=== PATIENT | male | born 1945 | race Caucasian/White ===

== ENCOUNTER 2017-02-15 14:16 | Inpatient (IN) | payer MEDICARE, OTHER ==
[~2017-02-15] VITALS: Ht 180.3 cm; Wt 98.7 kg
[~2017-02-15 14:16] MED LIST: ACTOS; LEVOXYL; LISI-646 PO; METF-370 PO; ONGLYZA
[2017-02-15] MEDS ORDERED: SODIUM CHLORIDE 0.9% 1,000 ML IV ONE (14:50)
[2017-02-15 15:25] LABS: Basophils # (auto) 0 uL; Basophils % (auto) 0.3 % (0.0-2.0); Eosinophils # (auto) 0 uL; Eosinophils % (auto) 0.1 % (0.0-7.0); Lymphocytes # (auto) 1.1 uL; Lymphocytes % (auto) 9.5 % (10.0-50.0); Mean Corpuscular Hemoglobin 29.6 pg (28.0-32.0); Mean Corpuscular Hgb Conc. 33.4 g/dL (32.0-36.0); Mean Corpuscular Volume 88.4 fL (80.0-100.0); Mean Platelet Volume 7.9 fL (6.9-10.8); Monocytes # (auto) 0.9 uL; Monocytes % (auto) 7.8 % (0.0-12.0); Neutrophils # (auto) 9.3 uL; Neutrophils % (auto) 82.3 % (37.0-80.0); Nucleated Red Blood Cells % 0.1 %; Platelet Count (auto) 225 10^3/uL (140-450); Red Cell Distribution Width 15.1 % (11.8-14.3); White Blood Cell 11.3 10^3/uL (4.4-10.8)
[2017-02-15 15:42] LABS: INR 2.19 (0.9-1.15)
[2017-02-15 15:49] LABS: Albumin 3.7 g/dL (3.4-5.0); Alkaline Phosphatase 94 U/L (45-117); Anion Gap 9 (5-15); Aspartate Aminotransferase 14 U/L (15-37); BUN/Creatinine Ratio 18.6; Bilirubin, Total 1.5 mg/dL (0.2-1.0); Blood Urea Nitrogen 16 mg/dL (7-18); Calcium 8.5 mg/dL (8.5-10.1); Carbon Dioxide 25 mmol/L (21-32); Chloride 102 mmol/L (98-107); GFR African American 113 mL/min; GFR Non-African American 93 mL/min; Glucose 196 mg/dL (74-106); Potassium 4.2 mmol/L (3.5-5.1); Sodium 136 mmol/L (136-145); Total Protein 7.9 g/dL (6.4-8.2)
[2017-02-15] MEDS ORDERED: PIPERACILLIN-TAZOB 3.375GM 50 ML IV ONE (16:00)
[2017-02-15] MEDS ORDERED: ACETAMINOPHEN 500 MG TAB PO PRN (16:45)
[2017-02-15] MEDS ORDERED: MORPHINE SULF INJ 2 MG/ML SYRINGE 1ML IV PRN (16:45)
[2017-02-15] MEDS ORDERED: PROMETHAZINE HCL 25 MG/ML 1ML IV PRN (16:45)
[2017-02-15] MEDS ORDERED: DEXTROSE (50%) 50ML SYRG IV PRN (16:45)
[2017-02-15] MEDS ORDERED: LACTULOSE 20Gm/30ML SOLN PO PRN (16:45)
[2017-02-15] MEDS ORDERED: LORazepam 0.5 MG TAB PO PRN (16:45)
[2017-02-15] MEDS ORDERED: NITROGLYCERIN 0.4 MG SL TAB SL PRN (16:45)
[2017-02-15] MEDS: SODIUM CHLORIDE 0.9% 1,000 ML IV SCH ×2 (16:46→22:12)
[2017-02-15] MEDS: ACCU-CHEK COMFORT CURVE STRIP VI SCH ×2 (16:55→22:11)
[2017-02-15] MEDS: InsuLIN REG 1unit/0.01ml Soln (100units/ml) SC SCH ×2 (16:55→22:00)
[2017-02-15] MEDS ORDERED: WARFARIN SODIUM 5 MG TAB PO ONE ×2 (17:45→18:00)
[2017-02-15] MEDS ORDERED: DILTIAZEM HCL 60 MG TAB PO ONE (18:15)
[2017-02-15 22:00] VITALS: BP_SYST 115; BP_SYST 120; BP_DIAS 63; BP_DIAS 65
[2017-02-15] MEDS: DILTIAZEM HCL 60 MG TAB PO SCH (22:10)
[2017-02-15] MEDS: CLINDAMYCIN 600MG IV 50 ML IV SCH (22:10)
[2017-02-15] MEDS: HYDROcodone-ACET 5/325MG TAB PO PRN (22:11)
[2017-02-15] MEDS: TEMAZEPAM 15 MG CAP PO PRN (22:11)
[2017-02-16 05:00] VITALS: BP 115/64
[2017-02-16] MEDS: CLINDAMYCIN 600MG IV 50 ML IV SCH ×3 (05:19→21:56)
[2017-02-16] MEDS: DILTIAZEM HCL 60 MG TAB PO SCH ×3 (05:20→21:55)
[2017-02-16] MEDS: ACCU-CHEK COMFORT CURVE STRIP VI SCH ×4 (05:21→22:00)
[2017-02-16] MEDS: LEVOTHYROXINE SODIUM 100 MCG TAB PO SCH (05:21)
[2017-02-16] MEDS: InsuLIN REG 1unit/0.01ml Soln (100units/ml) SC SCH ×4 (05:51→21:57)
[2017-02-16 06:54] LABS: Basophils # (auto) 0 uL; Basophils % (auto) 0.5 % (0.0-2.0); Eosinophils # (auto) 0.1 uL; Eosinophils % (auto) 1.1 % (0.0-7.0); Hematocrit 40.4 % (41.0-53.0); Hemoglobin 13.6 g/dL (13.5-17.5); Lymphocytes # (auto) 1.6 uL; Lymphocytes % (auto) 16.2 % (10.0-50.0); Mean Corpuscular Hemoglobin 29.5 pg (28.0-32.0); Mean Corpuscular Hgb Conc. 33.8 g/dL (32.0-36.0); Mean Corpuscular Volume 87.5 fL (80.0-100.0); Mean Platelet Volume 7.8 fL (6.9-10.8); Monocytes # (auto) 1.2 uL; Monocytes % (auto) 11.8 % (0.0-12.0); Neutrophils # (auto) 7.1 uL; Neutrophils % (auto) 70.4 % (37.0-80.0); Nucleated Red Blood Cells % 0.1 %; Platelet Count (auto) 184 10^3/uL (140-450); Red Cell Distribution Width 15.2 % (11.8-14.3); White Blood Cell 10.1 10^3/uL (4.4-10.8)
[2017-02-16 07:31] LABS: INR 1.72 (0.9-1.15); Prothrombin Time 18.8 sec (9.37-12.3)
[2017-02-16] MEDS: cefTRIAXone 1GM/50ML D5W 50 ML IV SCH (09:07)
[2017-02-16 09:28] VITALS: BP 102/48
[2017-02-16 09:29] VITALS: BP 102/48
[2017-02-16] MEDS: LISINOPRIL 20 MG TAB PO SCH (10:00)
[2017-02-16 12:30] VITALS: BP 130/67
[2017-02-16] MEDS: SODIUM CHLORIDE 0.9% 1,000 ML IV SCH (12:36)
[2017-02-16 16:09] VITALS: BP 143/59
[2017-02-16] MEDS: HYDROcodone-ACET 5/325MG TAB PO PRN ×2 (16:15→22:45)
[2017-02-16] MEDS: ATORVASTATIN 20 MG TAB PO SCH (21:52)
[2017-02-16 22:00] VITALS: BP 117/63
[2017-02-17] MEDS: SODIUM CHLORIDE 0.9% 1,000 ML IV SCH (03:37)
[2017-02-17 05:52] LABS: Basophils # (auto) 0.1 uL; Basophils % (auto) 0.7 % (0.0-2.0); Eosinophils # (auto) 0.1 uL; Eosinophils % (auto) 0.9 % (0.0-7.0); Hematocrit 40.9 % (41.0-53.0); Hemoglobin 13.6 g/dL (13.5-17.5); Lymphocytes # (auto) 1.8 uL; Lymphocytes % (auto) 14.5 % (10.0-50.0); Mean Corpuscular Hemoglobin 29.1 pg (28.0-32.0); Mean Corpuscular Hgb Conc. 33.2 g/dL (32.0-36.0); Mean Corpuscular Volume 87.5 fL (80.0-100.0); Mean Platelet Volume 7.9 fL (6.9-10.8); Monocytes # (auto) 1.5 uL; Monocytes % (auto) 12.5 % (0.0-12.0); Neutrophils # (auto) 8.8 uL; Neutrophils % (auto) 71.4 % (37.0-80.0); Platelet Count (auto) 185 10^3/uL (140-450); Red Cell Distribution Width 14.8 % (11.8-14.3); White Blood Cell 12.3 10^3/uL (4.4-10.8)
[2017-02-17 05:57] VITALS: BP 130/65
[2017-02-17 06:05] LABS: BUN/Creatinine Ratio 16.9; Calcium 8.2 mg/dL (8.5-10.1); Potassium 4.6 mmol/L (3.5-5.1)
[2017-02-17] MEDS: CLINDAMYCIN 600MG IV 50 ML IV SCH ×3 (06:25→22:04)
[2017-02-17] MEDS: LEVOTHYROXINE SODIUM 100 MCG TAB PO SCH (06:26)
[2017-02-17] MEDS: DILTIAZEM HCL 60 MG TAB PO SCH ×3 (06:31→22:07)
[2017-02-17] MEDS: HYDROcodone-ACET 5/325MG TAB PO PRN ×3 (06:35→20:47)
[2017-02-17] MEDS: InsuLIN REG 1unit/0.01ml Soln (100units/ml) SC SCH ×4 (06:41→22:20)
[2017-02-17 08:29] VITALS: BP 126/68
[2017-02-17] MEDS: cefTRIAXone 1GM/50ML D5W 50 ML IV SCH (09:43)
[2017-02-17] MEDS: LISINOPRIL 20 MG TAB PO SCH (09:43)
[2017-02-17] MEDS: ACCU-CHEK COMFORT CURVE STRIP VI SCH ×3 (11:44→22:21)
[2017-02-17 12:30] VITALS: BP 101/59
[2017-02-17 17:01] VITALS: BP 109/63
[2017-02-17 18:00] VITALS: BP 117/63
[2017-02-17] MEDS: ASCORBIC ACID 500 MG TAB PO SCH (18:40)
[2017-02-17] MEDS: MULTIPLE VITAMINS W/ MINERALS TAB PO SCH (18:40)
[2017-02-17] MEDS: ATORVASTATIN 20 MG TAB PO SCH (22:07)
[2017-02-18 05:06] VITALS: BP 127/76
[2017-02-18] MEDS: CLINDAMYCIN 600MG IV 50 ML IV SCH ×3 (06:06→22:11)
[2017-02-18] MEDS: DILTIAZEM HCL 60 MG TAB PO SCH ×3 (06:07→22:00)
[2017-02-18] MEDS: LEVOTHYROXINE SODIUM 100 MCG TAB PO SCH (06:09)
[2017-02-18] MEDS: InsuLIN REG 1unit/0.01ml Soln (100units/ml) SC SCH ×4 (06:20→22:10)
[2017-02-18] MEDS: ACCU-CHEK COMFORT CURVE STRIP VI SCH ×4 (06:21→22:10)
[2017-02-18 06:23] LABS: Basophils # (auto) 0 uL; Basophils % (auto) 0.2 % (0.0-2.0); Eosinophils # (auto) 0.1 uL; Eosinophils % (auto) 1.2 % (0.0-7.0); Hematocrit 38.7 % (41.0-53.0); Hemoglobin 13.2 g/dL (13.5-17.5); Lymphocytes # (auto) 1.7 uL; Lymphocytes % (auto) 14.9 % (10.0-50.0); Mean Corpuscular Hemoglobin 29.7 pg (28.0-32.0); Mean Corpuscular Hgb Conc. 34.1 g/dL (32.0-36.0); Mean Corpuscular Volume 87.2 fL (80.0-100.0); Mean Platelet Volume 7.7 fL (6.9-10.8); Monocytes # (auto) 1.1 uL; Monocytes % (auto) 9.5 % (0.0-12.0); Neutrophils # (auto) 8.4 uL; Neutrophils % (auto) 74.2 % (37.0-80.0); Nucleated Red Blood Cells % 0.1 %; Platelet Count (auto) 177 10^3/uL (140-450); Red Cell Distribution Width 14.5 % (11.8-14.3); White Blood Cell 11.3 10^3/uL (4.4-10.8)
[2017-02-18] MEDS: HYDROcodone-ACET 5/325MG TAB PO PRN ×3 (06:24→20:20)
[2017-02-18 07:04] LABS: BUN/Creatinine Ratio 18.8; Calcium 8.1 mg/dL (8.5-10.1); Potassium 4.1 mmol/L (3.5-5.1)
[2017-02-18 09:00] VITALS: BP 120/70
[2017-02-18] MEDS: MULTIPLE VITAMINS W/ MINERALS TAB PO SCH (10:41)
[2017-02-18] MEDS: ASCORBIC ACID 500 MG TAB PO SCH (10:41)
[2017-02-18] MEDS: LISINOPRIL 20 MG TAB PO SCH (10:42)
[2017-02-18] MEDS: cefTRIAXone 1GM/50ML D5W 50 ML IV SCH (10:44)
[2017-02-18 13:00] VITALS: BP 123/71
[2017-02-18 16:46] VITALS: BP 106/60
[2017-02-18] MEDS: ATORVASTATIN 20 MG TAB PO SCH (22:11)
[2017-02-18 22:18] VITALS: BP 110/57
[2017-02-19] MEDS: HYDROcodone-ACET 5/325MG TAB PO PRN ×3 (04:59→20:25)
[2017-02-19 05:49] VITALS: BP 131/72
[2017-02-19] MEDS: CLINDAMYCIN 600MG IV 50 ML IV SCH ×3 (06:17→21:43)
[2017-02-19] MEDS: DILTIAZEM HCL 60 MG TAB PO SCH ×3 (06:17→21:44)
[2017-02-19] MEDS: LEVOTHYROXINE SODIUM 100 MCG TAB PO SCH (06:18)
[2017-02-19] MEDS: ACCU-CHEK COMFORT CURVE STRIP VI SCH ×4 (06:18→21:33)
[2017-02-19] MEDS: InsuLIN REG 1unit/0.01ml Soln (100units/ml) SC SCH ×4 (06:19→21:44)
[2017-02-19 06:24] LABS: Basophils # (auto) 0.1 uL; Basophils % (auto) 0.7 % (0.0-2.0); Eosinophils # (auto) 0.2 uL; Eosinophils % (auto) 2.1 % (0.0-7.0); Hematocrit 39.6 % (41.0-53.0); Hemoglobin 13.3 g/dL (13.5-17.5); Lymphocytes # (auto) 1.7 uL; Lymphocytes % (auto) 16.4 % (10.0-50.0); Mean Corpuscular Hemoglobin 29.6 pg (28.0-32.0); Mean Corpuscular Hgb Conc. 33.6 g/dL (32.0-36.0); Mean Corpuscular Volume 88.2 fL (80.0-100.0); Mean Platelet Volume 7.8 fL (6.9-10.8); Monocytes # (auto) 0.9 uL; Monocytes % (auto) 9.1 % (0.0-12.0); Neutrophils # (auto) 7.4 uL; Neutrophils % (auto) 71.7 % (37.0-80.0); Nucleated Red Blood Cells % 0.1 %; Platelet Count (auto) 197 10^3/uL (140-450); Red Cell Distribution Width 14.6 % (11.8-14.3); White Blood Cell 10.3 10^3/uL (4.4-10.8)
[2017-02-19 06:33] LABS: Potassium 4.5 mmol/L (3.5-5.1)
[2017-02-19 06:41] LABS: Albumin 2.8 g/dL (3.4-5.0); BUN/Creatinine Ratio 18.8; Calcium 8.4 mg/dL (8.5-10.1)
[2017-02-19 06:44] LABS: Bilirubin, Total 1.4 mg/dL (0.2-1.0); Total Protein 6.8 g/dL (6.4-8.2)
[2017-02-19 08:00] VITALS: BP 122/74
[2017-02-19 09:00] VITALS: BP 122/74
[2017-02-19] MEDS: cefTRIAXone 1GM/50ML D5W 50 ML IV SCH (09:08)
[2017-02-19] MEDS: MULTIPLE VITAMINS W/ MINERALS TAB PO SCH (09:09)
[2017-02-19] MEDS: LISINOPRIL 20 MG TAB PO SCH (09:09)
[2017-02-19] MEDS: ASCORBIC ACID 500 MG TAB PO SCH (09:09)
[2017-02-19 13:00] VITALS: BP 121/58
[2017-02-19] MEDS: MORPHINE SULF INJ 2 MG/ML SYRINGE 1ML IV PRN (15:30)
[2017-02-19 17:09] VITALS: BP_SYST 132; BP_SYST 165; BP_DIAS 75; BP_DIAS 98
[2017-02-19] MEDS: ATORVASTATIN 20 MG TAB PO SCH (21:44)
[2017-02-19 22:00] VITALS: BP 121/71
[2017-02-20] MEDS: HYDROcodone-ACET 5/325MG TAB PO PRN ×3 (03:31→17:37)
[2017-02-20 05:00] VITALS: BP 135/64
[2017-02-20] MEDS: CLINDAMYCIN 600MG IV 50 ML IV SCH ×2 (05:59→13:32)
[2017-02-20] MEDS: LEVOTHYROXINE SODIUM 100 MCG TAB PO SCH (06:00)
[2017-02-20] MEDS: DILTIAZEM HCL 60 MG TAB PO SCH ×3 (06:00→21:51)
[2017-02-20] MEDS: ACCU-CHEK COMFORT CURVE STRIP VI SCH ×4 (06:00→22:04)
[2017-02-20] MEDS: InsuLIN REG 1unit/0.01ml Soln (100units/ml) SC SCH ×4 (06:00→22:04)
[2017-02-20 06:54] LABS: Basophils # (auto) 0.1 uL; Basophils % (auto) 0.5 % (0.0-2.0); Eosinophils # (auto) 0.2 uL; Eosinophils % (auto) 2.5 % (0.0-7.0); Hematocrit 38.2 % (41.0-53.0); Hemoglobin 12.8 g/dL (13.5-17.5); Lymphocytes # (auto) 1.8 uL; Lymphocytes % (auto) 19.3 % (10.0-50.0); Mean Corpuscular Hemoglobin 29.5 pg (28.0-32.0); Mean Corpuscular Hgb Conc. 33.5 g/dL (32.0-36.0); Mean Corpuscular Volume 87.9 fL (80.0-100.0); Mean Platelet Volume 8.2 fL (6.9-10.8); Monocytes # (auto) 0.9 uL; Monocytes % (auto) 9.2 % (0.0-12.0); Neutrophils # (auto) 6.5 uL; Neutrophils % (auto) 68.5 % (37.0-80.0); Nucleated Red Blood Cells % 0.2 %; Platelet Count (auto) 222 10^3/uL (140-450); Red Cell Distribution Width 14.8 % (11.8-14.3); White Blood Cell 9.5 10^3/uL (4.4-10.8)
[2017-02-20 07:14] LABS: Albumin 2.7 g/dL (3.4-5.0); Calcium 8.6 mg/dL (8.5-10.1); Potassium 4.5 mmol/L (3.5-5.1)
[2017-02-20 07:15] LABS: BUN/Creatinine Ratio 18.6
[2017-02-20 07:19] LABS: Bilirubin, Total 1.1 mg/dL (0.2-1.0); Total Protein 6.8 g/dL (6.4-8.2)
[2017-02-20 08:00] VITALS: BP 130/79
[2017-02-20] MEDS: cefTRIAXone 1GM/50ML D5W 50 ML IV SCH (09:55)
[2017-02-20] MEDS: MULTIPLE VITAMINS W/ MINERALS TAB PO SCH (09:56)
[2017-02-20] MEDS: LISINOPRIL 20 MG TAB PO SCH (09:56)
[2017-02-20] MEDS: ASCORBIC ACID 500 MG TAB PO SCH (09:56)
[2017-02-20 11:51] VITALS: BP 128/65
[2017-02-20 17:13] VITALS: BP 130/60
[2017-02-20 20:00] VITALS: BP 135/74
[2017-02-20] MEDS: ATORVASTATIN 20 MG TAB PO SCH (21:51)
[2017-02-20] MEDS: PIPERACILLIN-TAZO 4.5GM 50 ML IV SCH (21:52)
[2017-02-20 22:00] VITALS: BP 135/74
[2017-02-21] VITALS (7 sets, daily range): BP systolic 122–147; BP diastolic 64–77
[2017-02-21] MEDS: HYDROcodone-ACET 5/325MG TAB PO PRN ×4 (00:34→20:37)
[2017-02-21] MEDS: DILTIAZEM HCL 60 MG TAB PO SCH ×3 (06:26→21:27)
[2017-02-21] MEDS: LEVOTHYROXINE SODIUM 100 MCG TAB PO SCH (06:27)
[2017-02-21] MEDS: PIPERACILLIN-TAZO 4.5GM 50 ML IV SCH ×3 (06:27→21:26)
[2017-02-21] MEDS: ACCU-CHEK COMFORT CURVE STRIP VI SCH ×4 (06:40→21:31)
[2017-02-21] MEDS: InsuLIN REG 1unit/0.01ml Soln (100units/ml) SC SCH ×4 (06:50→21:27)
[2017-02-21 07:11] LABS: Urine Bilirubin Negative (Negative); Urine Blood Negative /uL (Negative); Urine Color Yellow (Yellow); Urine Glucose Normal (Normal); Urine Ketone Negative (Negative); Urine Nitrite Negative (Negative); Urine RBC <1 /hpf (0 - 3); Urine Urobilinogen Normal (Negative)
[2017-02-21] MEDS: LISINOPRIL 20 MG TAB PO SCH (09:25)
[2017-02-21] MEDS: MULTIPLE VITAMINS W/ MINERALS TAB PO SCH (09:25)
[2017-02-21] MEDS: ASCORBIC ACID 500 MG TAB PO SCH (09:25)
[2017-02-21] MEDS: MORPHINE SULF INJ 2 MG/ML SYRINGE 1ML IV PRN (15:34)
[2017-02-21] MEDS: ATORVASTATIN 20 MG TAB PO SCH (21:26)
[2017-02-22 05:00] VITALS: BP 136/81
[2017-02-22] MEDS: PIPERACILLIN-TAZO 4.5GM 50 ML IV SCH ×3 (06:35→22:08)
[2017-02-22] MEDS: LEVOTHYROXINE SODIUM 100 MCG TAB PO SCH (06:36)
[2017-02-22] MEDS: DILTIAZEM HCL 60 MG TAB PO SCH ×3 (06:38→22:08)
[2017-02-22] MEDS: HYDROcodone-ACET 5/325MG TAB PO PRN ×2 (06:39→17:25)
[2017-02-22] MEDS: InsuLIN REG 1unit/0.01ml Soln (100units/ml) SC SCH ×4 (06:55→22:09)
[2017-02-22] MEDS: ACCU-CHEK COMFORT CURVE STRIP VI SCH ×4 (06:56→22:09)
[2017-02-22 07:49] LABS: Albumin 2.9 g/dL (3.4-5.0); BUN/Creatinine Ratio 13.3; Calcium 8.6 mg/dL (8.5-10.1); Potassium 4.2 mmol/L (3.5-5.1)
[2017-02-22 07:52] LABS: Bilirubin, Total 1.1 mg/dL (0.2-1.0); Total Protein 7.2 g/dL (6.4-8.2)
[2017-02-22 08:28] VITALS: BP 139/76
[2017-02-22] MEDS: MULTIPLE VITAMINS W/ MINERALS TAB PO SCH (09:41)
[2017-02-22] MEDS: ASCORBIC ACID 500 MG TAB PO SCH (09:41)
[2017-02-22] MEDS: LISINOPRIL 20 MG TAB PO SCH (09:42)
[2017-02-22 11:59] VITALS: BP 132/83
[2017-02-22] MEDS ORDERED: IOHEXOL 350 MG/ML 100ML IJ ONE (13:35)
[2017-02-22] MEDS ORDERED: LIDOCAINE 2%HCL (LOCAL ANESTH.) INJ 20ML MDV ONE (13:35)
[2017-02-22] MEDS ORDERED: fentaNYL CITRATE 100 MCG/2 ML VL ONE (14:34)
[2017-02-22] MEDS ORDERED: ANGIOMAX 250 MG VIAL IV ONE ×2 (14:34→15:30)
[2017-02-22] MEDS ORDERED: MIDAZOLAM HCL 1MG/1ML-2 ML VIAL ONE (14:34)
[2017-02-22] MEDS ORDERED: SODIUM CHL 0.9% 50 ML ONE ×2 (14:35→15:31)
[2017-02-22] MEDS ORDERED: CLOPIDOGREL 300 MG TAB ONE (15:54)
[2017-02-22] MEDS: MORPHINE SULF INJ 2 MG/ML SYRINGE 1ML IV PRN ×2 (16:13→22:19)
[2017-02-22] MEDS ORDERED: CLOPIDOGREL 300 MG TAB PO ONE (16:15)
[2017-02-22 17:00] VITALS: BP 139/76
[2017-02-22 22:00] VITALS: BP 122/69
[2017-02-22] MEDS: ATORVASTATIN 20 MG TAB PO SCH (22:09)
[2017-02-23] VITALS (7 sets, daily range): BP systolic 120–135; BP diastolic 64–69
[2017-02-23] MEDS: HYDROcodone-ACET 5/325MG TAB PO PRN ×3 (02:33→22:46)
[2017-02-23] MEDS: PIPERACILLIN-TAZO 4.5GM 50 ML IV SCH ×3 (06:14→22:44)
[2017-02-23] MEDS: ACCU-CHEK COMFORT CURVE STRIP VI SCH ×4 (06:15→22:00)
[2017-02-23] MEDS: DILTIAZEM HCL 60 MG TAB PO SCH ×3 (06:15→22:43)
[2017-02-23] MEDS: LEVOTHYROXINE SODIUM 100 MCG TAB PO SCH (06:15)
[2017-02-23] MEDS: InsuLIN REG 1unit/0.01ml Soln (100units/ml) SC SCH ×4 (06:15→22:44)
[2017-02-23] MEDS ORDERED: CLOPIDOGREL BISULFATE 75 MG TAB PO SCH (10:00)
[2017-02-23] MEDS: ASCORBIC ACID 500 MG TAB PO SCH (10:47)
[2017-02-23] MEDS: LISINOPRIL 20 MG TAB PO SCH (10:48)
[2017-02-23] MEDS: MULTIPLE VITAMINS W/ MINERALS TAB PO SCH (10:48)
[2017-02-23] MEDS: MORPHINE SULF INJ 2 MG/ML SYRINGE 1ML IV PRN ×2 (13:32→20:41)
[2017-02-23] MEDS: ATORVASTATIN 20 MG TAB PO SCH (22:36)
[2017-02-24 05:23] VITALS: BP 130/81
[2017-02-24] MEDS: PIPERACILLIN-TAZO 4.5GM 50 ML IV SCH ×3 (06:08→17:16)
[2017-02-24] MEDS: DILTIAZEM HCL 60 MG TAB PO SCH ×3 (06:10→22:29)
[2017-02-24] MEDS: InsuLIN REG 1unit/0.01ml Soln (100units/ml) SC SCH ×4 (06:32→23:03)
[2017-02-24] MEDS: ACCU-CHEK COMFORT CURVE STRIP VI SCH ×4 (06:32→22:29)
[2017-02-24] MEDS: LEVOTHYROXINE SODIUM 100 MCG TAB PO SCH (06:33)
[2017-02-24 07:01] LABS: INR 1.05 (0.9-1.15); Partial Thromboplastin Time 29.6 sec (22.64-33.71); Prothrombin Time 11.5 sec (9.37-12.3)
[2017-02-24 08:00] VITALS: BP 139/79
[2017-02-24 09:00] VITALS: BP 139/79
[2017-02-24] MEDS: LISINOPRIL 20 MG TAB PO SCH (09:07)
[2017-02-24] MEDS: MULTIPLE VITAMINS W/ MINERALS TAB PO SCH (09:07)
[2017-02-24] MEDS: ASCORBIC ACID 500 MG TAB PO SCH (09:07)
[2017-02-24] MEDS ORDERED: ceFAZolin 1GM/50ML 50 ML IV ONE (10:21)
[2017-02-24] MEDS ORDERED: ceFAZolin 1GM VL ONE (11:41)
[2017-02-24] MEDS ORDERED: BUPIVACAINE 0.75% INJ 10ML MPV SDV IJ ONE (11:41)
[2017-02-24] MEDS ORDERED: MIDAZOLAM HCL 1MG/1ML-2 ML VIAL ONE (11:59)
[2017-02-24] MEDS ORDERED: fentaNYL CITRATE 100 MCG/2 ML VL ONE (11:59)
[2017-02-24] MEDS ORDERED: PROPOFOL 10 MG/ML 20 ML IV ONE (12:02)
[2017-02-24] MEDS ORDERED: hydrALAZINE HCL 20 MG/ML VL IV PRN (12:45)
[2017-02-24] MEDS ORDERED: ePHEDrine SULFATE 50 MG/ML AMP IV PRN (12:45)
[2017-02-24] MEDS ORDERED: ONDANSETRON HCL 4 MG/2 ML VIAL IV ONE (12:45)
[2017-02-24] MEDS ORDERED: fentaNYL CITRATE 100 MCG/2 ML VL IV ONE (13:00)
[2017-02-24 17:00] VITALS: BP 131/69
[2017-02-24 22:10] VITALS: BP 137/71
[2017-02-24] MEDS: ATORVASTATIN 20 MG TAB PO SCH (22:29)
[2017-02-24] MEDS: HYDROcodone-ACET 5/325MG TAB PO PRN (23:04)
[2017-02-25] MEDS: PIPERACILLIN-TAZO 4.5GM 50 ML IV SCH (02:00)
[2017-02-25 05:10] VITALS: BP 141/76
[2017-02-25] MEDS: DILTIAZEM HCL 60 MG TAB PO SCH ×3 (06:08→21:23)
[2017-02-25] MEDS: HYDROcodone-ACET 5/325MG TAB PO PRN ×3 (06:20→21:24)
[2017-02-25] MEDS: LEVOTHYROXINE SODIUM 100 MCG TAB PO SCH (06:26)
[2017-02-25] MEDS: ACCU-CHEK COMFORT CURVE STRIP VI SCH ×4 (06:27→21:24)
[2017-02-25] MEDS: InsuLIN REG 1unit/0.01ml Soln (100units/ml) SC SCH ×4 (06:27→21:23)
[2017-02-25 08:00] VITALS: BP 130/74
[2017-02-25 09:00] VITALS: BP_SYST 129; BP_SYST 130; BP_DIAS 58; BP_DIAS 74
[2017-02-25] MEDS: ASCORBIC ACID 500 MG TAB PO SCH (10:05)
[2017-02-25] MEDS: LISINOPRIL 20 MG TAB PO SCH (10:05)
[2017-02-25] MEDS: MULTIPLE VITAMINS W/ MINERALS TAB PO SCH (10:05)
[2017-02-25] MEDS: diphenhdrAMINE HCL 25 MG CAP PO PRN (11:48)
[2017-02-25 14:09] VITALS: BP 132/75
[2017-02-25 17:11] VITALS: BP 128/79
[2017-02-25] MEDS: ATORVASTATIN 20 MG TAB PO SCH (21:23)
[2017-02-25 22:00] VITALS: BP 123/65
[2017-02-26 04:00] VITALS: BP 127/76
[2017-02-26] MEDS: DILTIAZEM HCL 60 MG TAB PO SCH ×3 (05:52→22:41)
[2017-02-26] MEDS: LEVOTHYROXINE SODIUM 100 MCG TAB PO SCH (05:53)
[2017-02-26] MEDS: ACCU-CHEK COMFORT CURVE STRIP VI SCH ×4 (05:53→22:42)
[2017-02-26] MEDS: InsuLIN REG 1unit/0.01ml Soln (100units/ml) SC SCH ×4 (05:56→22:45)
[2017-02-26 07:52] VITALS: BP 117/68
[2017-02-26] MEDS: ASCORBIC ACID 500 MG TAB PO SCH (09:35)
[2017-02-26] MEDS: diphenhdrAMINE HCL 25 MG CAP PO PRN ×3 (09:35→23:19)
[2017-02-26] MEDS: MULTIPLE VITAMINS W/ MINERALS TAB PO SCH (09:35)
[2017-02-26] MEDS: LISINOPRIL 20 MG TAB PO SCH (10:00)
[2017-02-26 12:14] VITALS: BP 128/67
[2017-02-26] MEDS: HYDROcodone-ACET 5/325MG TAB PO PRN (14:35)
[2017-02-26 17:14] VITALS: BP 128/75
[2017-02-26 22:00] VITALS: BP 121/62
[2017-02-26] MEDS: ATORVASTATIN 20 MG TAB PO SCH (22:41)
[2017-02-26] MEDS: LEVOFLOXACIN 500 MG TAB PO SCH (22:41)
[2017-02-27 05:00] VITALS: BP 134/72
[2017-02-27] MEDS: diphenhdrAMINE HCL 25 MG CAP PO PRN ×2 (06:00→13:01)
[2017-02-27] MEDS: DILTIAZEM HCL 60 MG TAB PO SCH ×3 (06:37→21:49)
[2017-02-27] MEDS: LEVOTHYROXINE SODIUM 100 MCG TAB PO SCH (06:37)
[2017-02-27] MEDS: ACCU-CHEK COMFORT CURVE STRIP VI SCH ×4 (06:37→21:54)
[2017-02-27] MEDS: InsuLIN REG 1unit/0.01ml Soln (100units/ml) SC SCH ×4 (06:38→22:01)
[2017-02-27 08:00] VITALS: BP 136/90
[2017-02-27 09:00] VITALS: BP 136/90
[2017-02-27] MEDS: MULTIPLE VITAMINS W/ MINERALS TAB PO SCH (10:37)
[2017-02-27] MEDS: LEVOFLOXACIN 500 MG TAB PO SCH (10:37)
[2017-02-27] MEDS: ASCORBIC ACID 500 MG TAB PO SCH (10:37)
[2017-02-27] MEDS: LISINOPRIL 20 MG TAB PO SCH (10:38)
[2017-02-27 13:00] VITALS: BP_SYST 130; BP_SYST 132; BP_DIAS 76; BP_DIAS 82
[2017-02-27] MEDS: HYDROcodone-ACET 5/325MG TAB PO PRN (15:46)
[2017-02-27 17:00] VITALS: BP 119/70
[2017-02-27] MEDS ORDERED: predniSONE 5 MG TAB PO ONE (20:30)
[2017-02-27] MEDS ORDERED: diphenhdrAMINE HCL 25 MG CAP PO SCH (20:30)
[2017-02-27] MEDS: ATORVASTATIN 20 MG TAB PO SCH (21:48)
[2017-02-27] MEDS: diphenhdrAMINE HCL 25 MG CAP PO SCH (21:48)
[2017-02-27] MEDS: TEMAZEPAM 15 MG CAP PO PRN (22:00)
[2017-02-27 23:44] VITALS: BP 154/75
[2017-02-28] VITALS (7 sets, daily range): BP systolic 131–161; BP diastolic 75–82
[2017-02-28] MEDS: diphenhdrAMINE HCL 25 MG CAP PO SCH ×4 (05:58→18:57)
[2017-02-28] MEDS: DILTIAZEM HCL 60 MG TAB PO SCH ×3 (05:59→22:07)
[2017-02-28] MEDS: LEVOTHYROXINE SODIUM 100 MCG TAB PO SCH (06:47)
[2017-02-28] MEDS: ACCU-CHEK COMFORT CURVE STRIP VI SCH ×4 (06:54→22:22)
[2017-02-28] MEDS: InsuLIN REG 1unit/0.01ml Soln (100units/ml) SC SCH ×4 (06:54→22:22)
[2017-02-28] MEDS: MULTIPLE VITAMINS W/ MINERALS TAB PO SCH (10:01)
[2017-02-28] MEDS: LISINOPRIL 20 MG TAB PO SCH (10:01)
[2017-02-28] MEDS: predniSONE 5 MG TAB PO SCH (10:01)
[2017-02-28] MEDS: HYDROcodone-ACET 5/325MG TAB PO PRN (10:01)
[2017-02-28] MEDS: ASCORBIC ACID 500 MG TAB PO SCH (10:02)
[2017-02-28] MEDS: LEVOFLOXACIN 500 MG TAB PO SCH (10:02)
[2017-02-28] MEDS: ATORVASTATIN 20 MG TAB PO SCH (22:07)
[2017-02-28] MEDS: TEMAZEPAM 15 MG CAP PO PRN (22:28)
[2017-03-01 04:42] VITALS: BP 143/93
[2017-03-01] MEDS: diphenhdrAMINE HCL 25 MG CAP PO SCH ×4 (06:36→19:33)
[2017-03-01] MEDS: DILTIAZEM HCL 60 MG TAB PO SCH ×2 (06:36→16:57)
[2017-03-01] MEDS: InsuLIN REG 1unit/0.01ml Soln (100units/ml) SC SCH ×3 (06:37→17:09)
[2017-03-01] MEDS: ACCU-CHEK COMFORT CURVE STRIP VI SCH ×3 (06:37→17:03)
[2017-03-01] MEDS: LEVOTHYROXINE SODIUM 100 MCG TAB PO SCH (07:31)
[2017-03-01 08:00] VITALS: BP 129/82
[2017-03-01 08:00] LABS: Basophils # (auto) 0 uL; Basophils % (auto) 0.3 % (0.0-2.0); Eosinophils # (auto) 0.1 uL; Eosinophils % (auto) 0.4 % (0.0-7.0); Hematocrit 42.8 % (41.0-53.0); Hemoglobin 14.2 g/dL (13.5-17.5); Lymphocytes # (auto) 1.8 uL; Lymphocytes % (auto) 14.9 % (10.0-50.0); Mean Corpuscular Hemoglobin 28.7 pg (28.0-32.0); Mean Corpuscular Hgb Conc. 33.2 g/dL (32.0-36.0); Mean Corpuscular Volume 86.3 fL (80.0-100.0); Mean Platelet Volume 7.7 fL (6.9-10.8); Monocytes # (auto) 0.8 uL; Monocytes % (auto) 6.9 % (0.0-12.0); Neutrophils # (auto) 9.4 uL; Neutrophils % (auto) 77.5 % (37.0-80.0); Platelet Count (auto) 284 10^3/uL (140-450); Red Cell Distribution Width 14.2 % (11.8-14.3); White Blood Cell 12.1 10^3/uL (4.4-10.8)
[2017-03-01 09:00] VITALS: BP 129/82
[2017-03-01] MEDS: LEVOFLOXACIN 500 MG TAB PO SCH (10:44)
[2017-03-01] MEDS: ASCORBIC ACID 500 MG TAB PO SCH (10:44)
[2017-03-01] MEDS: MULTIPLE VITAMINS W/ MINERALS TAB PO SCH (10:44)
[2017-03-01] MEDS: LISINOPRIL 20 MG TAB PO SCH (10:45)
[2017-03-01] MEDS: predniSONE 5 MG TAB PO SCH (10:45)
[2017-03-01 12:41] VITALS: BP 120/69
[2017-03-01 16:05] VITALS: BP 120/69
[2017-03-01 17:41] VITALS: BP 127/83
== END 2017-03-01 20:15 | disposition home health service (06) | DRG 271 ==
LOC: ER 14:16 → TELE 14:17 → TELE-CENTR 21:04
PROVIDERS: ADMIT Internal Medicine; ATTEND Internal Medicine Pulmonary Disease
PROC: 0Y6T0Z0 Detachment at Right 3rd Toe, Complete, Open Approach (ICD-10-PCS; 2017-02-24)
PROC: 047M3Z1 Dilation of Right Popliteal Artery using Drug-Coated Balloon, Percutaneous Approach (ICD-10-PCS; principal; 2017-02-25)
PROC: 04CM3ZZ Extirpation of Matter from Right Popliteal Artery, Percutaneous Approach (ICD-10-PCS; 2017-02-25)
PROC: 047T3Z1 Dilation of Right Peroneal Artery using Drug-Coated Balloon, Percutaneous Approach (ICD-10-PCS; 2017-02-25)
PROC: 04CT3ZZ Extirpation of Matter from Right Peroneal Artery, Percutaneous Approach (ICD-10-PCS; 2017-02-25)
DX: E11.52 Type 2 diabetes mellitus with diabetic peripheral angiopathy with gangrene (principal); E11.621 Type 2 diabetes mellitus with foot ulcer; I48.91 Unspecified atrial fibrillation; L03.115 Cellulitis of right lower limb; E66.01 Morbid (severe) obesity due to excess calories; M86.8X8 Other osteomyelitis, other site; L03.811 Cellulitis of head [any part, except face]; E11.69 Type 2 diabetes mellitus with other specified complication; E11.319 Type 2 diabetes mellitus with unspecified diabetic retinopathy without macular edema; E78.5 Hyperlipidemia, unspecified; R63.4 Abnormal weight loss; R21 Rash and other nonspecific skin eruption; I10 Essential (primary) hypertension; Z83.3 Family history of diabetes mellitus; Z85.850 Personal history of malignant neoplasm of thyroid; Z79.84 Long term (current) use of oral hypoglycemic drugs; Z79.899 Other long term (current) drug therapy; Z87.891 Personal history of nicotine dependence; Z68.30 Body mass index [BMI] 30.0-30.9, adult
CPT/HCPCS: 34203; 36415; 37224; 37228; 71010; 73630; 78315; 80048; 80053; 81001; 82962; 83036; 83605; 84484; 85025; 85379; 85610; 85652; 85730; 86850; 86900; 86901; 87040; 87077; 87186; 93005; 93925; 93926; 93971; 96365; 96366; 99152; 99153; J0690; J0696; J1815; J2250; J2543; J2704; J3490

== ENCOUNTER → 2017-03-30 | Emergency (ER) | payer MEDICARE, OTHER ==
[~2017-03-30] MED LIST changes: +ALBI1INJ2 SC; +DILT120T3 PO; +EMPA1TAB PO; +LEVO200T45 PO; +SIMV-8 PO; +ceFAZolin 1GM VL ONE; +ceFAZolin 1GM/50ML 50 ML IV ONE
== END | disposition left against medical advice (07) ==
LOC: ER 18:25
DX: M79.671 Pain in right foot (principal); Z53.21 Procedure and treatment not carried out due to patient leaving prior to being seen by health care provider

== ENCOUNTER 2017-03-31 07:44 | Day surgery (SDC) | payer MEDICARE, OTHER ==
[~2017-03-31] VITALS: Ht 30.5 cm; Wt 0.5 kg
[~2017-03-31 07:44] MED LIST changes: -ALBI1INJ2 SC; -DILT120T3 PO; -EMPA1TAB PO; -LEVO200T45 PO; -SIMV-8 PO; -ceFAZolin 1GM VL ONE; -ceFAZolin 1GM/50ML 50 ML IV ONE
[2017-03-31 08:30] LABS: Basophils # (auto) 0.1 uL; Basophils % (auto) 0.8 % (0.0-2.0); Eosinophils # (auto) 0.1 uL; Hematocrit 45.4 % (41.0-53.0); Hemoglobin 15.4 g/dL (13.5-17.5); Lymphocytes # (auto) 1.7 uL; Lymphocytes % (auto) 23.6 % (10.0-50.0); Mean Corpuscular Hemoglobin 29.5 pg (28.0-32.0); Mean Corpuscular Hgb Conc. 33.9 g/dL (32.0-36.0); Mean Corpuscular Volume 87.1 fL (80.0-100.0); Monocytes # (auto) 0.5 uL; Monocytes % (auto) 6.9 % (0.0-12.0); Neutrophils # (auto) 4.8 uL; Neutrophils % (auto) 66.7 % (37.0-80.0); Nucleated Red Blood Cells % 0.1 %; Platelet Count (auto) 215 10^3/uL (140-450); Red Blood Cells 5.21 10^6/uL (4.5-5.90); Red Cell Distribution Width 15.8 % (11.8-14.3); White Blood Cell 7.3 10^3/uL (4.4-10.8)
[2017-03-31] MEDS ORDERED: fentaNYL CITRATE 100 MCG/2 ML VL ONE (08:42)
[2017-03-31] MEDS ORDERED: PROPOFOL 10 MG/ML 20 ML IV ONE (08:43)
[2017-03-31] MEDS ORDERED: MIDAZOLAM HCL 1MG/1ML-2 ML VIAL ONE (08:43)
[2017-03-31 08:48] LABS: BUN/Creatinine Ratio 18.8; Calcium 8.6 mg/dL (8.5-10.1); Potassium 3.8 mmol/L (3.5-5.1)
[2017-03-31 08:59] LABS: Partial Thromboplastin Time 29.2 sec (22.64-33.71); Prothrombin Time 10.9 sec (9.37-12.3)
[2017-03-31] MEDS ORDERED: hydrALAZINE HCL 20 MG/ML VL IV PRN (09:30)
[2017-03-31] MEDS ORDERED: ONDANSETRON HCL 4 MG/2 ML VIAL IV ONE (09:30)
[2017-03-31] MEDS ORDERED: ePHEDrine SULFATE 50 MG/ML AMP IV PRN (09:30)
[2017-03-31 09:50] VITALS: BP 124/71
[2017-03-31] MEDS ORDERED: fentaNYL CITRATE 100 MCG/2 ML VL IV ONE (10:00)
[2017-06-29] MEDS ORDERED: DILT120T3 PO (13:34)
[2017-06-29] MEDS ORDERED: EMPA1TAB PO (13:34)
[2017-06-29] MEDS ORDERED: LEVO200T45 PO (13:34)
[2017-06-29] MEDS ORDERED: SIMV-8 PO (13:34)
[2017-06-29] MEDS ORDERED: ALBI1INJ2 SC (13:34)
== END 2017-03-31 10:00 | disposition home or self-care (01) ==
LOC: SUR 07:44
PROVIDERS: ATTEND Podiatrist Foot & Ankle Surgery
DX: L97.513 Non-pressure chronic ulcer of other part of right foot with necrosis of muscle (principal); D69.6 Thrombocytopenia, unspecified; Z87.891 Personal history of nicotine dependence; I49.9 Cardiac arrhythmia, unspecified; Z85.850 Personal history of malignant neoplasm of thyroid; E11.9 Type 2 diabetes mellitus without complications; E89.0 Postprocedural hypothyroidism; Z88.0 Allergy status to penicillin; I48.91 Unspecified atrial fibrillation
CPT/HCPCS: 15004; 15275; 36415; 80048; 82962; 85025; 85610; 85730; 87070; 87075; 87205; 88304; C1887; J2250; J2704; J3010; L3260

== ENCOUNTER → 2017-04-29 | Outpatient (CLI) | payer MEDICARE, OTHER ==
[~2017-04-29] VITALS: Ht 30.5 cm; Wt 0.5 kg
[~2017-04-29] MED LIST changes: +ALBI1INJ2 SC; +DILT120T3 PO; +EMPA1TAB PO; +LEVO200T45 PO; +LIDOCAINE 1% HCL (LOCAL ANESTH.) INJ 20ML MDV ID ONE; +SIMV-8 PO; +SODIUM CHLOR 0.9% PF (SALINE LOCK) 10ML VIAL IV SCH
[2017-04-29 08:14] LABS: Basophils # (auto) 0.1 uL; Basophils % (auto) 0.8 % (0.0-2.0); Eosinophils # (auto) 0.1 uL; Eosinophils % (auto) 1.9 % (0.0-7.0); Hematocrit 44.2 % (41.0-53.0); Hemoglobin 14.7 g/dL (13.5-17.5); Lymphocytes % (auto) 26.8 % (10.0-50.0); Mean Corpuscular Hemoglobin 29.6 pg (28.0-32.0); Mean Corpuscular Hgb Conc. 33.3 g/dL (32.0-36.0); Mean Corpuscular Volume 88.9 fL (80.0-100.0); Monocytes # (auto) 0.5 uL; Monocytes % (auto) 6.8 % (0.0-12.0); Neutrophils # (auto) 4.8 uL; Neutrophils % (auto) 63.7 % (37.0-80.0); Nucleated Red Blood Cells % 0.1 %; Platelet Count (auto) 242 10^3/uL (140-450); Red Blood Cells 4.97 10^6/uL (4.5-5.90); White Blood Cell 7.6 10^3/uL (4.4-10.8)
[2017-04-29 08:47] LABS: INR 0.95 (0.9-1.15); Prothrombin Time 10.3 sec (9.37-12.3)
== END | disposition home or self-care (01) ==
LOC: XYW 07:13
PROVIDERS: ATTEND Podiatrist
DX: L97.819 Non-pressure chronic ulcer of other part of right lower leg with unspecified severity (principal); Z87.891 Personal history of nicotine dependence
CPT/HCPCS: 36415; 36569; 71045; 85025; 85610; C1751; J7050

== ENCOUNTER → 2017-06-30 | Day surgery (SDC) | payer MEDICARE, OTHER ==
[2017-06-29 15:15] LABS: Albumin 3.9 g/dL (3.4-5.0); BUN/Creatinine Ratio 19.5; Calcium 9.2 mg/dL (8.5-10.1); Potassium 4.4 mmol/L (3.5-5.1)
[2017-06-29 15:17] LABS: Bilirubin, Total 0.9 mg/dL (0.2-1.0); INR 0.97 (0.9-1.15); Partial Thromboplastin Time 28.2 sec (22.64-33.71); Prothrombin Time 10.6 sec (9.37-12.3); Total Protein 7.4 g/dL (6.4-8.2)
[2017-06-29 15:18] LABS: Basophils # (auto) 0.2 uL; Basophils % (auto) 1.5 % (0.0-2.0); Eosinophils # (auto) 0.2 uL; Hematocrit 45.9 % (41.0-53.0); Hemoglobin 15.5 g/dL (13.5-17.5); Lymphocytes # (auto) 2.5 uL; Lymphocytes % (auto) 23.2 % (10.0-50.0); Mean Corpuscular Hemoglobin 29.9 pg (28.0-32.0); Mean Corpuscular Hgb Conc. 33.7 g/dL (32.0-36.0); Mean Corpuscular Volume 88.8 fL (80.0-100.0); Monocytes # (auto) 0.8 uL; Monocytes % (auto) 7.1 % (0.0-12.0); Neutrophils # (auto) 7.1 uL; Neutrophils % (auto) 66.2 % (37.0-80.0); Nucleated Red Blood Cells % 0.2 %; Platelet Count (auto) 217 10^3/uL (140-450); Red Blood Cells 5.17 10^6/uL (4.5-5.90); Red Cell Distribution Width 14.4 % (11.8-14.3); White Blood Cell 10.7 10^3/uL (4.4-10.8)
[~2017-06-30] VITALS: Ht 180.3 cm; Wt 114.8 kg
[~2017-06-30] MED LIST changes: +ACCU-CHEK COMFORT CURVE STRIP VI ONE; -ACTOS; +CLINDAMYCIN 600MG IV 50 ML IV ONE; +DEXAMETHASONE SOD PHOS 10MG/1ML VIAL INJ ONE; +KETOROLAC TROMETH 30 MG/ML 1ML VIAL IV ONE; +LABETALOL HCL 5 MG/ML 4ML SYRINGE IV PRN; -LEVOXYL; -LIDOCAINE 1% HCL (LOCAL ANESTH.) INJ 20ML MDV ID ONE; +MEPERIDINE HCL (50 MG/ML) 1 ML VIAL ONE; +MIDAZOLAM HCL 1MG/1ML-2 ML VIAL IV PRN; +MIDAZOLAM HCL 1MG/1ML-2 ML VIAL ONE; +MORPHINE SULFATE 4 MG/ML SYR/VIAL IV ONE; +MORPHINE SULFATE 4 MG/ML SYR/VIAL IV PRN; +ONDANSETRON HCL 4 MG/2 ML VIAL IV ONE; -ONGLYZA; +PROPOFOL 10 MG/ML 20 ML IV ONE; -SODIUM CHLOR 0.9% PF (SALINE LOCK) 10ML VIAL IV SCH; +ceFAZolin 1GM/50ML 0 ML IV ONE; +ePHEDrine SULFATE 50 MG/ML AMP IV PRN; +fentaNYL CITRATE 100 MCG/2 ML VL IV ONE; +fentaNYL CITRATE 100 MCG/2 ML VL ONE; +hydrALAZINE HCL 20 MG/ML VL IV PRN
[2017-06-30 11:39] VITALS: BP 117/53
== END | disposition home or self-care (01) ==
LOC: SUR 07:41
PROVIDERS: ATTEND Podiatrist Foot & Ankle Surgery
DX: L97.519 Non-pressure chronic ulcer of other part of right foot with unspecified severity (principal); E11.622 Type 2 diabetes mellitus with other skin ulcer; Z88.1 Allergy status to other antibiotic agents; E66.9 Obesity, unspecified; Z68.35 Body mass index [BMI] 35.0-35.9, adult; Z87.891 Personal history of nicotine dependence; E89.0 Postprocedural hypothyroidism; C73 Malignant neoplasm of thyroid gland; I10 Essential (primary) hypertension; I48.91 Unspecified atrial fibrillation; E11.9 Type 2 diabetes mellitus without complications; Z79.899 Other long term (current) drug therapy; Z79.84 Long term (current) use of oral hypoglycemic drugs; I49.9 Cardiac arrhythmia, unspecified
CPT/HCPCS: 15004; 15275; 36415; 80053; 82962; 85025; 85610; 85730; 87070; 87075; 87205; C1887; J1100; J2175; J2250; J2704; J3010; J3490; Q4126; J0690

== ENCOUNTER 2017-08-04 10:40 | Day surgery (SDC) | payer MEDICARE, OTHER ==
[2017-08-03 11:22] LABS: Basophils # (auto) 0 uL; Basophils % (auto) 0.4 % (0.0-2.0); Eosinophils # (auto) 0.1 uL; Eosinophils % (auto) 1.5 % (0.0-7.0); Hematocrit 46.3 % (41.0-53.0); Hemoglobin 15.5 g/dL (13.5-17.5); Lymphocytes % (auto) 20.6 % (10.0-50.0); Mean Corpuscular Hemoglobin 29.5 pg (28.0-32.0); Mean Corpuscular Hgb Conc. 33.4 g/dL (32.0-36.0); Mean Corpuscular Volume 88.2 fL (80.0-100.0); Monocytes # (auto) 0.7 uL; Monocytes % (auto) 7.5 % (0.0-12.0); Neutrophils # (auto) 6.9 uL; Platelet Count (auto) 224 10^3/uL (140-450); Red Blood Cells 5.25 10^6/uL (4.5-5.90); Red Cell Distribution Width 14.4 % (11.8-14.3); White Blood Cell 9.9 10^3/uL (4.4-10.8)
[2017-08-03 11:27] LABS: Urine Blood Negative /uL (Negative); Urine Specific Gravity 1.031 (1.001-1.035)
[2017-08-03 11:41] LABS: INR 0.92 (0.9-1.15); Partial Thromboplastin Time 27.5 sec (22.64-33.71)
[2017-08-03 11:48] LABS: Albumin 3.9 g/dL (3.4-5.0); Bilirubin, Total 0.9 mg/dL (0.2-1.0); Calcium 9.3 mg/dL (8.5-10.1); Potassium 4.7 mmol/L (3.5-5.1); Total Protein 7.7 g/dL (6.4-8.2)
[~2017-08-04] VITALS: Ht 180.3 cm; Wt 116.1 kg
[~2017-08-04 10:40] MED LIST changes: -ACCU-CHEK COMFORT CURVE STRIP VI ONE; -CLINDAMYCIN 600MG IV 50 ML IV ONE; -DEXAMETHASONE SOD PHOS 10MG/1ML VIAL INJ ONE; +EMPA1TAB; -KETOROLAC TROMETH 30 MG/ML 1ML VIAL IV ONE; -LABETALOL HCL 5 MG/ML 4ML SYRINGE IV PRN; +LEVO125T7 PO; -MEPERIDINE HCL (50 MG/ML) 1 ML VIAL ONE; +METF-370; +METF500T PO; -MIDAZOLAM HCL 1MG/1ML-2 ML VIAL IV PRN; -MIDAZOLAM HCL 1MG/1ML-2 ML VIAL ONE; -MORPHINE SULFATE 4 MG/ML SYR/VIAL IV ONE; -MORPHINE SULFATE 4 MG/ML SYR/VIAL IV PRN; -ONDANSETRON HCL 4 MG/2 ML VIAL IV ONE; +PIO30T PO; -PROPOFOL 10 MG/ML 20 ML IV ONE; -ceFAZolin 1GM/50ML 0 ML IV ONE; -ePHEDrine SULFATE 50 MG/ML AMP IV PRN; -fentaNYL CITRATE 100 MCG/2 ML VL IV ONE; -fentaNYL CITRATE 100 MCG/2 ML VL ONE; -hydrALAZINE HCL 20 MG/ML VL IV PRN
[2017-08-04] MEDS ORDERED: ceFAZolin 1GM/50ML 50 ML IV ONE (11:21)
[2017-08-04] MEDS ORDERED: CLINDAMYCIN 600MG IV 100 ML IV ONE (13:14)
[2017-08-04] MEDS ORDERED: BUPIVACAINE 0.75% INJ 10ML MPV SDV IJ ONE (13:16)
[2017-08-04] MEDS ORDERED: MIDAZOLAM HCL 1MG/1ML-2 ML VIAL ONE (13:32)
[2017-08-04] MEDS ORDERED: PROPOFOL 10 MG/ML 20 ML IV ONE (13:32)
[2017-08-04] MEDS ORDERED: fentaNYL CITRATE 100 MCG/2 ML VL ONE (13:32)
[2017-08-04] MEDS ORDERED: ePHEDrine SULFATE 50 MG/ML AMP IV PRN (14:15)
[2017-08-04] MEDS ORDERED: ONDANSETRON HCL 4 MG/2 ML VIAL IV ONE (14:15)
[2017-08-04] MEDS ORDERED: hydrALAZINE HCL 20 MG/ML VL IV PRN (14:15)
[2017-08-04 14:35] VITALS: BP 113/57
[2017-08-04] MEDS ORDERED: fentaNYL CITRATE 100 MCG/2 ML VL IV ONE (15:00)
[2017-08-30] MEDS ORDERED: LISI2.5T47 PO (15:40)
[2017-08-30] MEDS ORDERED: SIMV10TA84 PO (15:40)
[2017-08-30] MEDS ORDERED: PIO30T PO (15:40)
== END 2017-08-04 14:45 | disposition home or self-care (01) ==
LOC: SUR 10:40
PROVIDERS: ATTEND Podiatrist Foot & Ankle Surgery
DX: S98.211A Complete traumatic amputation of two or more right lesser toes, initial encounter (principal); T87.9 Unspecified complications of amputation stump; E11.9 Type 2 diabetes mellitus without complications; E89.0 Postprocedural hypothyroidism; M48.00 Spinal stenosis, site unspecified; H40.9 Unspecified glaucoma; I10 Essential (primary) hypertension; I48.91 Unspecified atrial fibrillation; E66.9 Obesity, unspecified; Z68.35 Body mass index [BMI] 35.0-35.9, adult; Z87.891 Personal history of nicotine dependence; Z79.899 Other long term (current) drug therapy; Y83.9 Surgical procedure, unspecified as the cause of abnormal reaction of the patient, or of later complication, without mention of misadventure at the time of the procedure
CPT/HCPCS: 15004; 15275; 36415; 80053; 81003; 82962; 85025; 85610; 85730; C1887; J0690; J2250; J2704; J3010; J3490; Q4128

== ENCOUNTER → 2017-08-30 | Outpatient (CLI) | payer MEDICARE, OTHER ==
[~2017-08-30] MED LIST changes: +LISI2.5T47 PO; +SIMV10TA84 PO
[2017-08-30 09:10] VITALS: BP 128/60
[2017-08-30 09:40] VITALS: BP 109/62
[2017-08-30 12:22] LABS: Basophils # (auto) 0 uL; Basophils % (auto) 0.5 % (0.0-2.0); Eosinophils # (auto) 0.1 uL; Eosinophils % (auto) 1.2 % (0.0-7.0); Hematocrit 44.1 % (41.0-53.0); Hemoglobin 14.9 g/dL (13.5-17.5); Lymphocytes # (auto) 1.7 uL; Mean Corpuscular Hgb Conc. 33.9 g/dL (32.0-36.0); Mean Corpuscular Volume 88.7 fL (80.0-100.0); Monocytes # (auto) 0.7 uL; Monocytes % (auto) 9.3 % (0.0-12.0); Neutrophils # (auto) 4.9 uL; Nucleated Red Blood Cells % 0.3 %; Platelet Count (auto) 208 10^3/uL (140-450); Red Blood Cells 4.97 10^6/uL (4.5-5.90); Red Cell Distribution Width 14.5 % (11.8-14.3); White Blood Cell 7.4 10^3/uL (4.4-10.8)
[2017-08-30 12:40] LABS: BUN/Creatinine Ratio 21.3; Calcium 9.4 mg/dL (8.5-10.1); Potassium 4.6 mmol/L (3.5-5.1)
[2017-08-30 13:04] LABS: INR 0.93 (0.9-1.15); Partial Thromboplastin Time 28.9 sec (23.78-33.04)
== END | disposition home or self-care (01) ==
LOC: Rad HDHVI 08:52 → MERGE 08:52
PROVIDERS: ATTEND Internal Medicine Cardiovascular Disease
DX: Z01.818 Encounter for other preprocedural examination (principal); I70.0 Atherosclerosis of aorta
CPT/HCPCS: 36415; 71046; 80048; 85025; 85610; 85730; 93005; G0463

== ENCOUNTER 2017-09-02 06:59 | Day surgery (SDC) | payer MEDICARE, OTHER ==
[~2017-09-02] VITALS: Ht 180.3 cm; Wt 116.1 kg
[~2017-09-02 06:59] MED LIST changes: -LISI-646 PO; -SIMV-8 PO
[2017-09-02] MEDS ORDERED: IOHEXOL 350 MG/ML 100ML IJ ONE (07:23)
[2017-09-02] MEDS ORDERED: LIDOCAINE 2%HCL (LOCAL ANESTH.) INJ 20ML MDV ONE (07:23)
[2017-09-02] MEDS ORDERED: SODIUM CHL 0.9% 50 ML ONE (07:59)
[2017-09-02] MEDS ORDERED: MIDAZOLAM HCL 1MG/1ML-2 ML VIAL ONE (07:59)
[2017-09-02] MEDS ORDERED: fentaNYL CITRATE 100 MCG/2 ML VL ONE (07:59)
[2017-09-02] MEDS ORDERED: ANGIOMAX 250 MG VIAL IV ONE (08:05)
== END 2017-09-02 10:35 | disposition home or self-care (01) ==
LOC: CATH 06:59
PROVIDERS: ATTEND Internal Medicine Cardiovascular Disease
DX: I73.9 Peripheral vascular disease, unspecified (principal); E66.9 Obesity, unspecified; I10 Essential (primary) hypertension; E78.5 Hyperlipidemia, unspecified; E11.9 Type 2 diabetes mellitus without complications; Z95.5 Presence of coronary angioplasty implant and graft; Z88.1 Allergy status to other antibiotic agents; Z88.8 Allergy status to other drugs, medicaments and biological substances; Z68.35 Body mass index [BMI] 35.0-35.9, adult; Z87.891 Personal history of nicotine dependence; Z79.899 Other long term (current) drug therapy; Z79.84 Long term (current) use of oral hypoglycemic drugs
CPT/HCPCS: 36247; 75716; C1760; C1769; C1887; C1894; J0583; J1644; J2250; J3010; Q9967; 99152

== ENCOUNTER → 2017-09-13 | Outpatient (CLI) | payer MEDICARE, OTHER ==
[2017-09-13 08:18] LABS: Basophils # (auto) 0 uL; Basophils % (auto) 0.5 % (0.0-2.0); Eosinophils # (auto) 0.1 uL; Hematocrit 44.5 % (41.0-53.0); Hemoglobin 14.9 g/dL (13.5-17.5); Lymphocytes # (auto) 1.8 uL; Lymphocytes % (auto) 28.2 % (10.0-50.0); Mean Corpuscular Hemoglobin 29.6 pg (28.0-32.0); Mean Corpuscular Hgb Conc. 33.5 g/dL (32.0-36.0); Mean Corpuscular Volume 88.4 fL (80.0-100.0); Monocytes # (auto) 0.5 uL; Monocytes % (auto) 7.8 % (0.0-12.0); Neutrophils # (auto) 3.9 uL; Neutrophils % (auto) 61.5 % (37.0-80.0); Nucleated Red Blood Cells % 0.1 %; Platelet Count (auto) 212 10^3/uL (140-450); Red Blood Cells 5.04 10^6/uL (4.5-5.90); Red Cell Distribution Width 14.7 % (11.8-14.3); White Blood Cell 6.4 10^3/uL (4.4-10.8)
[2017-09-13 08:41] LABS: Urine Bacteria NONE SEEN /hpf (None Seen); Urine Blood Negative /uL (Negative); Urine Specific Gravity 1.021 (1.001-1.035); Urine WBC <1 /hpf (0 - 3)
[2017-09-13 08:56] LABS: Albumin 3.7 g/dL (3.4-5.0); BUN/Creatinine Ratio 21.3; Bilirubin, Total 1.2 mg/dL (0.2-1.0); Calcium 8.8 mg/dL (8.5-10.1); Potassium 4.4 mmol/L (3.5-5.1); Total Protein 7.5 g/dL (6.4-8.2)
== END | disposition home or self-care (01) ==
LOC: LAB 07:24
PROVIDERS: ATTEND Physician Assistant
DX: I10 Essential (primary) hypertension (principal); E11.65 Type 2 diabetes mellitus with hyperglycemia; E78.2 Mixed hyperlipidemia; I73.9 Peripheral vascular disease, unspecified; Z85.850 Personal history of malignant neoplasm of thyroid
CPT/HCPCS: 36415; 80053; 80061; 81001; 84443; 85025

== ENCOUNTER → 2017-09-23 | Outpatient (CLI) | payer MEDICARE, OTHER | END | disposition home or self-care (01) | LOC: Rad HDHVI 13:46 | PROVIDERS: ATTEND Internal Medicine Cardiovascular Disease | DX: I07.1 Rheumatic tricuspid insufficiency (principal); E11.9 Type 2 diabetes mellitus without complications; E78.00 Pure hypercholesterolemia, unspecified; E78.2 Mixed hyperlipidemia; E03.9 Hypothyroidism, unspecified; Z79.899 Other long term (current) drug therapy | CPT/HCPCS: 93306 ==

== ENCOUNTER → 2017-11-15 | Outpatient (CLI) | payer MEDICARE, OTHER ==
[~2017-11-15] MED LIST changes: -EMPA1TAB; +POTA10TA51 PO; +RIVA20TA PO
[2017-11-15 08:15] VITALS: BP 120/64
[2017-11-15 09:00] VITALS: BP 118/55
[2017-11-15 12:43] LABS: Basophils # (auto) 0 uL; Basophils % (auto) 0.5 % (0.0-2.0); Eosinophils # (auto) 0.1 uL; Eosinophils % (auto) 1.2 % (0.0-7.0); Hematocrit 42.9 % (41.0-53.0); Hemoglobin 14.4 g/dL (13.5-17.5); Lymphocytes # (auto) 1.4 uL; Lymphocytes % (auto) 20.8 % (10.0-50.0); Mean Corpuscular Hemoglobin 29.9 pg (28.0-32.0); Mean Corpuscular Hgb Conc. 33.5 g/dL (32.0-36.0); Mean Corpuscular Volume 89.3 fL (80.0-100.0); Monocytes # (auto) 0.6 uL; Neutrophils # (auto) 4.8 uL; Neutrophils % (auto) 69.5 % (37.0-80.0); Nucleated Red Blood Cells % 0.4 %; Platelet Count (auto) 218 10^3/uL (140-450); Red Blood Cells 4.81 10^6/uL (4.5-5.90); Red Cell Distribution Width 15.1 % (11.8-14.3); White Blood Cell 6.9 10^3/uL (4.4-10.8)
[2017-11-15 13:03] LABS: INR 0.95 (0.9-1.15); Partial Thromboplastin Time 29.4 sec (23.78-33.04); Prothrombin Time 10.2 sec (9.27-12.13)
[2017-11-15 13:33] LABS: Calcium 8.8 mg/dL (8.5-10.1); Potassium 4.7 mmol/L (3.5-5.1)
== END | disposition home or self-care (01) ==
LOC: CHF HDHVI 07:57
PROVIDERS: ATTEND Internal Medicine Cardiovascular Disease
DX: Z01.818 Encounter for other preprocedural examination (principal); D64.9 Anemia, unspecified; I10 Essential (primary) hypertension; R79.1 Abnormal coagulation profile; R94.31 Abnormal electrocardiogram [ECG] [EKG]
CPT/HCPCS: 36415; 80048; 85025; 85610; 85730; 93005; G0463

== ENCOUNTER → 2018-06-20 | Outpatient (CLI) | payer MEDICARE, OTHER ==
[~2018-06-20] MED LIST changes: +DULA0.5I SC; +FURO20TA PO; -LEVO125T7 PO; -LEVO200T45 PO; +LEVO200T7 PO; -METF-370; -METF500T PO
[2018-06-20 09:55] VITALS: BP 118/73
--- NOTE | 2018-06-20 09:55 | NUR ---
Pre-Op Discharge Summary: See e-MAR for any medications given for this visit. Pre-op orders received and carried out per MD of EKG, LABS and chest xrays. Patient given a copy of EKG with instructions to go to [facility] out patient for further follow up care.
[2018-06-20 10:10] VITALS: BP 108/64
[2018-06-20 12:32] LABS: Basophils # (auto) 0 uL; Basophils % (auto) 0.4 % (0.0-2.0); Eosinophils # (auto) 0.1 uL; Eosinophils % (auto) 0.9 % (0.0-7.0); Hematocrit 46.7 % (41.0-53.0); Hemoglobin 15.1 g/dL (13.5-17.5); Lymphocytes # (auto) 1.7 uL; Lymphocytes % (auto) 24.7 % (10.0-50.0); Mean Corpuscular Hemoglobin 29.3 pg (28.0-32.0); Mean Corpuscular Hgb Conc. 32.4 g/dL (32.0-36.0); Mean Corpuscular Volume 90.3 fL (80.0-100.0); Monocytes # (auto) 0.5 uL; Monocytes % (auto) 6.9 % (0.0-12.0); Neutrophils # (auto) 4.5 uL; Neutrophils % (auto) 67.1 % (37.0-80.0); Nucleated Red Blood Cells % 0.1 %; Platelet Count (auto) 208 10^3/uL (140-450); Red Blood Cells 5.18 10^6/uL (4.5-5.90); Red Cell Distribution Width 15.6 % (11.8-14.3); White Blood Cell 6.8 10^3/uL (4.4-10.8)
[2018-06-20 12:48] LABS: INR 1.13 (0.9-1.15); Partial Thromboplastin Time 40.6 sec (23.78-33.04)
[2018-06-20 13:29] LABS: Calcium 9.3 mg/dL (8.5-10.1); Potassium 4.4 mmol/L (3.5-5.1)
== END | disposition home or self-care (01) ==
LOC: Rad HDHVI 09:38
PROVIDERS: ATTEND Internal Medicine Cardiovascular Disease
DX: Z01.812 Encounter for preprocedural laboratory examination (principal); I70.0 Atherosclerosis of aorta; I11.9 Hypertensive heart disease without heart failure; D64.9 Anemia, unspecified; R79.1 Abnormal coagulation profile
CPT/HCPCS: 36415; 71046; 80048; 85025; 85610; 85730; 93005; G0463

== ENCOUNTER 2018-06-23 08:07 | Inpatient (IN) | payer MEDICARE, OTHER | END 2018-06-24 13:01 | disposition home or self-care (01) | LOC: CATH 08:07 → TELE-CENTR 16:38 → CENTRAL 18:46 | PROC: B41G1ZZ Fluoroscopy of Left Lower Extremity Arteries using Low Osmolar Contrast (ICD-10-PCS; principal; ~2018-06-23) | PROC: 04CS3ZZ Extirpation of Matter from Left Posterior Tibial Artery, Percutaneous Approach (ICD-10-PCS; ~2018-06-23) | PROC: B41F1ZZ Fluoroscopy of Right Lower Extremity Arteries using Low Osmolar Contrast (ICD-10-PCS; ~2018-06-23) | DX: I70.203 Unspecified atherosclerosis of native arteries of extremities, bilateral legs (principal); E11.51 Type 2 diabetes mellitus with diabetic peripheral angiopathy without gangrene; E11.21 Type 2 diabetes mellitus with diabetic nephropathy ==

== ENCOUNTER → 2018-07-01 | Outpatient (CLI) | payer MEDICARE, OTHER ==
[~2018-07-01] MED LIST changes: -ALBI1INJ2 SC
[2018-07-01 13:20] VITALS: BP 128/80
--- NOTE | 2018-07-01 13:42 | NUR ---
[facility] CLINIC Discharge Instructions See e-MAR for any mediations given with this visit. Patient education given on disease process. Patient verbalized understanding. Previous labs reviewed. Patient discharged in stable condition with after care instructions and follow up appointment. NOTE WOUND CARE LEFT FOOT, 3 WOUNDS CLEANED WITH NORMAL SALINE, SILVADENE OPTIFOAM APPLIED TO ULCERS AND WRAPPED WITH KERLEX AND STOCKINETTE PLACED ON TOP.
== END | disposition home or self-care (01) ==
LOC: CHF HDHVI 13:20
PROVIDERS: ATTEND Internal Medicine Cardiovascular Disease
DX: E11.621 Type 2 diabetes mellitus with foot ulcer (principal); L97.529 Non-pressure chronic ulcer of other part of left foot with unspecified severity
CPT/HCPCS: G0463

== ENCOUNTER → 2018-07-05 | Outpatient (CLI) | payer MEDICARE, OTHER ==
[~2018-07-05] MED LIST changes: +SILVER SULFADIAZINE 1 % TOPICAL CREAM 50GM TOP ONE
[2018-07-05 08:30] VITALS: BP 137/77
--- NOTE | 2018-07-05 08:45 | NUR ---
LEFT FOOT UNWRAPPED AND EVALUATED. WOUND ON SMALL TOE LEFT FOOT, AND HEEL LEFT FOOT, AND GREAT TOE MEDIAL ASPECT LEFT FOOT.
[2018-07-05 09:15] VITALS: BP 137/76
--- NOTE | 2018-07-05 09:15 | NUR ---
[facility]F CLINIC Discharge Instructions See e-MAR for any mediations given with this visit. Patient education given on disease process. Patient verbalized understanding. Previous labs reviewed. Patient discharged in stable condition with after care instructions and follow up appointment. NOTE WOUND CARE PROVIDED AND REP FOR [facility] CALLED TO ORDER FOR PATIENT. PATIENT HAS [facility] FOR HOME WOUND [facility].
== END | disposition home or self-care (01) ==
LOC: CHF HDHVI 08:41
PROVIDERS: ATTEND Internal Medicine Cardiovascular Disease
DX: E11.621 Type 2 diabetes mellitus with foot ulcer (principal)
CPT/HCPCS: G0463

== ENCOUNTER → 2018-07-08 | Outpatient (CLI) | payer MEDICARE, OTHER ==
[~2018-07-08] MED LIST changes: -SILVER SULFADIAZINE 1 % TOPICAL CREAM 50GM TOP ONE
[2018-07-08 11:40] VITALS: BP 123/55
[2018-07-08 12:30] VITALS: BP 123/55
--- NOTE | 2018-07-08 12:30 | NUR ---
LEFT FOOT ULCERS 1. HEEL 1CM [place] 2. GREAT TOE 1.4CM [place] 3. SMALL TOE 0.9CM [place] CONNECTED 2CM X 2.5CM WOUND
[2018-07-08 13:05] VITALS: BP 125/67
--- NOTE | 2018-07-08 13:05 | NUR ---
CHF CLINIC Discharge Instructions See e-MAR for any mediations given with this visit. Patient education given on disease process. Patient verbalized understanding. Previous labs reviewed. Patient discharged in stable condition with after care instructions and follow up appointment. NOTE PATIENT BROUGHT IN HOME MEDICATION SANTYL TO APPLY TO FOOT ULCERS.
== END | disposition home or self-care (01) ==
LOC: CHF HDHVI 11:32
PROVIDERS: ATTEND Internal Medicine Cardiovascular Disease
DX: E11.621 Type 2 diabetes mellitus with foot ulcer (principal)
CPT/HCPCS: G0463

== ENCOUNTER → 2018-07-15 | Outpatient (CLI) | payer MEDICARE, OTHER ==
[2018-07-15 11:40] VITALS: BP 137/72
--- NOTE | 2018-07-15 11:45 | NUR ---
CHF PT ARRIVED AT [facility] FOR WOUND CARE. VITAL SIGNS OBTAINED 0 DISTRESS
--- NOTE | 2018-07-15 12:15 | NUR ---
Wound Care Wound care provided per MD order. Patient tolerated well and verbalized dressing care instructions. Follow up in clinic as directed. See e-MAR for medications given during this visit. WOUND CARE PROVIDED REMOVED DRESSING CLEANSED WITH NORMAL SALINE DRIED. MEAUSREMENTS FOLLOWS WOUND #1 LEFT HEEL 1CM X 0.5 CM WOUND #2 LEFT OUTER FOOT NEAR TOP 0.5CM X 0.5 CM WOUND # 3 OUTSIDE OF LEFT GREAT TOE 2.5 X 0.5 CM TOP OF SMALL TOE ON LEFT FOOT SLIGHT DARK AND HARD SANTYL ALSO APPLED TO THAT. cOVERED ALL WOUND BEDS WITH SANTYL NICKEL THICK APPLIED ADAPTIC ON TOP THE SANTYL COVERED WITH 2 X 2 AND KERLIX. PT TOLERATED WELL
== END | disposition home or self-care (01) ==
LOC: CHF HDHVI 11:35
PROVIDERS: ATTEND Internal Medicine Cardiovascular Disease
DX: E11.621 Type 2 diabetes mellitus with foot ulcer (principal)
CPT/HCPCS: G0463

== ENCOUNTER → 2018-07-19 | Outpatient (CLI) | payer MEDICARE, OTHER | END | disposition home or self-care (01) | LOC: Rad HDHVI 11:52 | PROVIDERS: ATTEND Internal Medicine Cardiovascular Disease | DX: L97.921 Non-pressure chronic ulcer of unspecified part of left lower leg limited to breakdown of skin (principal); I73.9 Peripheral vascular disease, unspecified | CPT/HCPCS: 93926 ==

== ENCOUNTER → 2018-08-09 | Outpatient (CLI) | payer MEDICARE, OTHER ==
[~2018-08-09] VITALS: Ht 180.3 cm; Wt 122.7 kg
[~2018-08-09] MED LIST changes: +CLOP75TA28 PO; +DILT120T8 PO; +LEVO200T46 PO
[2018-08-09 10:20] VITALS: BP 106/62
--- NOTE | 2018-08-09 10:20 | NUR ---
CHF PT ARRIVED TO [facility] FOR PREOP LAB, [facility] VITAL SIGNS OBTAINED PT A/O X 3 0 DISTRESS
--- NOTE | 2018-08-09 10:40 | NUR ---
Pre-Op Discharge Summary: See e-MAR for any medications given for this visit. Pre-op orders received and carried out per MD of EKG, LABS and chest xrays. Patient given a copy of EKG with instructions to go to [facility] out patient for further follow up care.
[2018-08-09 11:21] VITALS: BP 114/53
[2018-08-09 12:14] LABS: Basophils # (auto) 0 uL; Basophils % (auto) 0.5 % (0.0-2.0); Eosinophils # (auto) 0.1 uL; Eosinophils % (auto) 1.5 % (0.0-7.0); Hematocrit 41.8 % (41.0-53.0); Hemoglobin 13.8 g/dL (13.5-17.5); Lymphocytes # (auto) 1.6 uL; Lymphocytes % (auto) 22.2 % (10.0-50.0); Mean Corpuscular Hemoglobin 29.9 pg (28.0-32.0); Mean Corpuscular Volume 90.6 fL (80.0-100.0); Monocytes # (auto) 0.6 uL; Monocytes % (auto) 7.5 % (0.0-12.0); Neutrophils % (auto) 68.3 % (37.0-80.0); Nucleated Red Blood Cells % 0.1 %; Platelet Count (auto) 189 10^3/uL (140-450); Red Blood Cells 4.61 10^6/uL (4.5-5.90); Red Cell Distribution Width 15.2 % (11.8-14.3); White Blood Cell 7.4 10^3/uL (4.4-10.8)
[2018-08-09 12:42] LABS: INR 0.93 (0.9-1.15); Partial Thromboplastin Time 26.4 sec (23.78-33.04)
[2018-08-09 14:13] LABS: BUN/Creatinine Ratio 22.3; Calcium 9.2 mg/dL (8.5-10.1); Potassium 4.4 mmol/L (3.5-5.1)
== END | disposition home or self-care (01) ==
LOC: Rad HDHVI 09:53 → UNDOADMIN 08-11 14:13 → WEST WING 08-11 14:13
PROVIDERS: ATTEND Internal Medicine Cardiovascular Disease
DX: Z01.812 Encounter for preprocedural laboratory examination (principal); D64.9 Anemia, unspecified; R79.1 Abnormal coagulation profile; I10 Essential (primary) hypertension
CPT/HCPCS: 36415; 80048; 85025; 85610; 85730; 93005; G0463

== ENCOUNTER 2018-08-11 08:56 | Inpatient (IN) | payer MEDICARE, OTHER | END 2018-08-12 12:55 | disposition home or self-care (01) | LOC: CATH 08:56 → WEST WING 14:13 | PROC: B41G1ZZ Fluoroscopy of Left Lower Extremity Arteries using Low Osmolar Contrast (ICD-10-PCS; principal; ~2018-08-11) | PROC: 04CN3ZZ Extirpation of Matter from Left Popliteal Artery, Percutaneous Approach (ICD-10-PCS; ~2018-08-11) | PROC: 047N3ZZ Dilation of Left Popliteal Artery, Percutaneous Approach (ICD-10-PCS; ~2018-08-11) | PROC: B41F1ZZ Fluoroscopy of Right Lower Extremity Arteries using Low Osmolar Contrast (ICD-10-PCS; ~2018-08-11) | DX: I73.9 Peripheral vascular disease, unspecified (principal); E11.40 Type 2 diabetes mellitus with diabetic neuropathy, unspecified; E11.51 Type 2 diabetes mellitus with diabetic peripheral angiopathy without gangrene; J44.9 Chronic obstructive pulmonary disease, unspecified; I25.10 Atherosclerotic heart disease of native coronary artery without angina pectoris; E78.5 Hyperlipidemia, unspecified ==

== ENCOUNTER 2018-10-12 19:54 | Inpatient (IN) | payer MEDICARE, OTHER | END 2018-10-14 18:10 | disposition home health service (06) | LOC: OVERFLOW 19:55 → CENTRAL 10-13 03:02 → ER 19:54 | DX: R10.9 Unspecified abdominal pain (principal); N13.2 Hydronephrosis with renal and ureteral calculous obstruction; E11.65 Type 2 diabetes mellitus with hyperglycemia; E87.6 Hypokalemia; E11.51 Type 2 diabetes mellitus with diabetic peripheral angiopathy without gangrene; E66.9 Obesity, unspecified; E78.5 Hyperlipidemia, unspecified; E86.0 Dehydration; I11.9 Hypertensive heart disease without heart failure; I48.91 Unspecified atrial fibrillation; K59.00 Constipation, unspecified ==

== ENCOUNTER → 2019-05-11 | Outpatient (CLI) | payer MEDICARE, OTHER ==
[~2019-05-11] MED LIST changes: -DILT120T3 PO; +FURO1TAB33 PO; -FURO20TA PO; -LEVO200T7 PO; +MERO1INJ IV; -RIVA20TA PO; +VANC500I IV
[2019-05-11 07:38] LABS: Basophils # (auto) 0 uL; Basophils % (auto) 0.6 % (0.0-2.0); Eosinophils # (auto) 0.1 uL; Eosinophils % (auto) 1.7 % (0.0-7.0); Hematocrit 40.9 % (41.0-53.0); Hemoglobin 13.4 g/dL (13.5-17.5); Lymphocytes # (auto) 1.7 uL; Lymphocytes % (auto) 20.1 % (10.0-50.0); Mean Corpuscular Hemoglobin 28.3 pg (28.0-32.0); Mean Corpuscular Hgb Conc. 32.8 g/dL (32.0-36.0); Mean Corpuscular Volume 86.2 fL (80.0-100.0); Monocytes # (auto) 0.6 uL; Monocytes % (auto) 6.7 % (0.0-12.0); Neutrophils # (auto) 5.9 uL; Neutrophils % (auto) 70.9 % (37.0-80.0); Platelet Count (auto) 224 10^3/uL (140-450); Red Blood Cells 4.75 10^6/uL (4.5-5.90); Red Cell Distribution Width 15.4 % (11.8-14.3); White Blood Cell 8.4 10^3/uL (4.4-10.8)
[2019-05-11 07:50] LABS: Albumin 3.6 g/dL (3.4-5.0); Calcium 9.1 mg/dL (8.5-10.1); Potassium 4.8 mmol/L (3.5-5.1)
[2019-05-11 07:54] LABS: BUN/Creatinine Ratio 23.5; Bilirubin, Total 0.6 mg/dL (0.2-1.0); Total Protein 8.2 g/dL (6.4-8.2)
[2019-05-16 10:02] LABS: Urine Bacteria NONE SEEN /hpf (None Seen); Urine Blood 1+ /uL (Negative); Urine Specific Gravity 1.016 (1.001-1.035); Urine WBC 119 /hpf (0 - 3); Urine WBC Clumps PRESENT /hpf (None Seen)
== END | disposition home or self-care (01) ==
LOC: LAB 07:06
PROVIDERS: ATTEND Physician Assistant
DX: E11.65 Type 2 diabetes mellitus with hyperglycemia (principal); M86.8X7 Other osteomyelitis, ankle and foot; I48.91 Unspecified atrial fibrillation; Z12.5 Encounter for screening for malignant neoplasm of prostate
CPT/HCPCS: 36415; 80053; 80061; 81001; 83036; 84153; 85025

== ENCOUNTER → 2020-06-14 | Outpatient (CLI) | payer MEDICARE, OTHER ==
[~2020-06-14] MED LIST changes: +LEVO200T PO; -LEVO200T46 PO
[2020-06-14 08:05] LABS: Basophils # (auto) 0.1 10 ^3/uL (0-0.2); Basophils % (auto) 0.7 % (0.0-2.0); Eosinophils # (auto) 0.2 10 ^3/uL (0-0.8); Eosinophils % (auto) 1.9 % (0.0-7.0); Hemoglobin 14.5 g/dL (13.5-17.5); Lymphocytes # (auto) 1.9 10 ^3/uL (0.4-5.4); Lymphocytes % (auto) 21.7 % (10.0-50.0); Mean Corpuscular Hemoglobin 29.4 pg (28.0-32.0); Mean Corpuscular Hgb Conc. 33.7 g/dL (32.0-36.0); Mean Corpuscular Volume 87.1 fL (80.0-100.0); Monocytes # (auto) 0.5 10 ^3/uL (0-1.3); Monocytes % (auto) 6.4 % (0.0-12.0); Neutrophils # (auto) 5.9 10 ^3/uL (1.6-8.6); Neutrophils % (auto) 69.3 % (37.0-80.0); Platelet Count (auto) 258 10^3/uL (140-450); Red Blood Cells 4.93 10^6/uL (4.5-5.90); Red Cell Distribution Width 14.5 % (11.8-14.3); White Blood Cell 8.6 10^3/uL (4.4-10.8)
[2020-06-14 08:36] LABS: Albumin 3.8 g/dL (3.4-5.0); Potassium 4.5 mmol/L (3.5-5.1)
[2020-06-14 08:43] LABS: BUN/Creatinine Ratio 18.9; Bilirubin, Total 0.6 mg/dL (0.2-1.0); Calcium 9.4 mg/dL (8.5-10.1); Total Protein 8.2 g/dL (6.4-8.2)
== END | disposition home or self-care (01) ==
LOC: LAB 07:18
PROVIDERS: ATTEND Physician Assistant
DX: E11.21 Type 2 diabetes mellitus with diabetic nephropathy (principal); E11.40 Type 2 diabetes mellitus with diabetic neuropathy, unspecified; I10 Essential (primary) hypertension; I48.20 Chronic atrial fibrillation, unspecified; R35.1 Nocturia
CPT/HCPCS: 36415; 80053; 80061; 82043; 83036; 84153; 85025

== ENCOUNTER → 2020-09-02 | Outpatient (CLI) | payer MEDICARE, OTHER | END | disposition home or self-care (01) | LOC: Rad HDHVI 15:58 | PROVIDERS: ATTEND Internal Medicine Cardiovascular Disease | DX: I50.33 Acute on chronic diastolic (congestive) heart failure (principal); R00.2 Palpitations; R06.02 Shortness of breath | CPT/HCPCS: 93306 ==

== ENCOUNTER → 2020-09-10 | Outpatient (CLI) | payer MEDICARE, OTHER ==
[~2020-09-10] VITALS: Ht 180.3 cm; Wt 117.9 kg
[~2020-09-10] MED LIST changes: +ADENOSINE 90 MG/30 ML INJ IV ONE; +ADENOSINE 99 MG in GIVE UN-DILUTED 0 ML IV ONE
== END | disposition home or self-care (01) ==
LOC: Rad HDHVI 08:48
PROVIDERS: ATTEND Internal Medicine Cardiovascular Disease
DX: I25.10 Atherosclerotic heart disease of native coronary artery without angina pectoris (principal); I10 Essential (primary) hypertension; I73.9 Peripheral vascular disease, unspecified; E11.59 Type 2 diabetes mellitus with other circulatory complications; E78.5 Hyperlipidemia, unspecified; Z98.62 Peripheral vascular angioplasty status; Z82.49 Family history of ischemic heart disease and other diseases of the circulatory system; Z95.0 Presence of cardiac pacemaker
CPT/HCPCS: 78452; 93005; 96374; 96375; A9500; J0153

== ENCOUNTER → 2020-11-06 | Day surgery (SDC) | payer MEDICARE, OTHER ==
[2020-11-01 15:35] LABS: Basophils # (auto) 0.1 10 ^3/uL (0-0.2); Basophils % (auto) 0.7 % (0.0-2.0); Eosinophils # (auto) 0.1 10 ^3/uL (0-0.8); Eosinophils % (auto) 1.4 % (0.0-7.0); Hematocrit 43.8 % (41.0-53.0); Hemoglobin 14.9 g/dL (13.5-17.5); Lymphocytes # (auto) 2.6 10 ^3/uL (0.4-5.4); Lymphocytes % (auto) 27.9 % (10.0-50.0); Mean Corpuscular Hemoglobin 29.6 pg (28.0-32.0); Mean Corpuscular Hgb Conc. 34.1 g/dL (32.0-36.0); Mean Corpuscular Volume 86.8 fL (80.0-100.0); Monocytes # (auto) 0.7 10 ^3/uL (0-1.3); Monocytes % (auto) 7.5 % (0.0-12.0); Neutrophils # (auto) 5.8 10 ^3/uL (1.6-8.6); Neutrophils % (auto) 62.5 % (37.0-80.0); Red Blood Cells 5.05 10^6/uL (4.5-5.90); Red Cell Distribution Width 14.3 % (11.8-14.3); White Blood Cell 9.3 10^3/uL (4.4-10.8)
[2020-11-01 15:40] LABS: Urine Bacteria FEW /hpf (None Seen); Urine Blood Negative /uL (Negative); Urine Specific Gravity 1.023 (1.001-1.035); Urine WBC 19 /hpf (0 - 3)
[2020-11-01 15:56] LABS: Albumin 3.5 g/dL (3.4-5.0); BUN/Creatinine Ratio 16.3; Calcium 8.7 mg/dL (8.5-10.1); Potassium 4.1 mmol/L (3.5-5.1)
[2020-11-01 15:58] LABS: Bilirubin, Total 0.6 mg/dL (0.2-1.0); Total Protein 7.8 g/dL (6.4-8.2)
[~2020-11-06] VITALS: Ht 180.3 cm; Wt 117.9 kg
[~2020-11-06] MED LIST changes: -ADENOSINE 90 MG/30 ML INJ IV ONE; -ADENOSINE 99 MG in GIVE UN-DILUTED 0 ML IV ONE; +APIX5TAB PO; +BUPIVACAINE W/ EPINEPH 0.5% MPF 30ML VIAL IJ ONE; -CLOP75TA28 PO; +LIDOCAINE 2% (LOCAL ANESTH.) PF 5ml SDV ONE; -MERO1INJ IV; +MIDAZOLAM HCL 2MG/2ML 2ml VIAL (1mg/ml) ONE; +ONDANSETRON HCL 4 MG/2 ML VIAL ONE; -PIO30T PO; +PROPOFOL 10 MG/ML 20 ML IV ONE; +ROCURONIUM 10MG/ML 10ML VIAL IV ONE; -VANC500I IV; +ceFAZolin 1GM/50ML 100 ML IV ONE; +fentaNYL CITRATE 5 ML ONE
[2020-11-06 12:55] VITALS: BP 149/74
== END | disposition home or self-care (01) ==
LOC: SUR 09:01
PROVIDERS: ATTEND Surgery
DX: R59.0 Localized enlarged lymph nodes (principal); R19.09 Other intra-abdominal and pelvic swelling, mass and lump; C76.3 Malignant neoplasm of pelvis; E11.9 Type 2 diabetes mellitus without complications; E03.9 Hypothyroidism, unspecified; I10 Essential (primary) hypertension; I48.91 Unspecified atrial fibrillation; Z80.0 Family history of malignant neoplasm of digestive organs; Z79.899 Other long term (current) drug therapy; Z98.890 Other specified postprocedural states; Z96.89 Presence of other specified functional implants; Z88.1 Allergy status to other antibiotic agents; Z88.8 Allergy status to other drugs, medicaments and biological substances; Z68.36 Body mass index [BMI] 36.0-36.9, adult; Z87.891 Personal history of nicotine dependence; Z20.822 Contact with and (suspected) exposure to COVID-19
CPT/HCPCS: 11606; 36415; 80053; 81001; 82962; 85025; J0690; J2001; J2250; J2405; J2704; J3010; U0003

== ENCOUNTER → 2021-09-24 | Outpatient (CLI) | payer MEDICARE, OTHER ==
[~2021-09-24] MED LIST changes: -BUPIVACAINE W/ EPINEPH 0.5% MPF 30ML VIAL IJ ONE; -LIDOCAINE 2% (LOCAL ANESTH.) PF 5ml SDV ONE; -MIDAZOLAM HCL 2MG/2ML 2ml VIAL (1mg/ml) ONE; -ONDANSETRON HCL 4 MG/2 ML VIAL ONE; -PROPOFOL 10 MG/ML 20 ML IV ONE; -ROCURONIUM 10MG/ML 10ML VIAL IV ONE; -ceFAZolin 1GM/50ML 100 ML IV ONE; -fentaNYL CITRATE 5 ML ONE
[2021-09-24 08:52] LABS: Basophils # (auto) 0 10 ^3/uL (0-0.2); Basophils % (auto) 0.2 % (0.0-2.0); Eosinophils # (auto) 0.1 10 ^3/uL (0-0.8); Eosinophils % (auto) 1.8 % (0.0-7.0); Hematocrit 42.6 % (41.0-53.0); Hemoglobin 13.9 g/dL (13.5-17.5); Lymphocytes # (auto) 0.9 10 ^3/uL (0.4-5.4); Lymphocytes % (auto) 15.4 % (10.0-50.0); Mean Corpuscular Hemoglobin 28.3 pg (28.0-32.0); Mean Corpuscular Hgb Conc. 32.7 g/dL (32.0-36.0); Mean Corpuscular Volume 86.4 fL (80.0-100.0); Monocytes # (auto) 0.4 10 ^3/uL (0-1.3); Monocytes % (auto) 7.3 % (0.0-12.0); Neutrophils # (auto) 4.4 10 ^3/uL (1.6-8.6); Neutrophils % (auto) 75.3 % (37.0-80.0); Nucleated Red Blood Cells % 0.1 %; Red Blood Cells 4.93 10^6/uL (4.5-5.90); White Blood Cell 5.9 10^3/uL (4.4-10.8)
[2021-09-24 09:32] LABS: Albumin 3.6 g/dL (3.4-5.0); Calcium 9.1 mg/dL (8.5-10.1); Potassium 4.6 mmol/L (3.5-5.1)
[2021-09-24 09:37] LABS: BUN/Creatinine Ratio 25.3; Bilirubin, Total 0.8 mg/dL (0.2-1.0); Total Protein 7.4 g/dL (6.4-8.2)
[2021-09-24 09:45] LABS: Prostate Specific Antigen 0.04 ng/mL (0.0-4.0)
[2021-09-24 09:50] LABS: Free T4 (Free Thyroxine) 1.84 ng/dL (0.89-1.76)
== END | disposition home or self-care (01) ==
LOC: LAB 08:07
PROVIDERS: ATTEND Nurse Practitioner Family
DX: E11.21 Type 2 diabetes mellitus with diabetic nephropathy (principal); E03.9 Hypothyroidism, unspecified; I10 Essential (primary) hypertension; I73.9 Peripheral vascular disease, unspecified; R35.1 Nocturia; Z00.00 Encounter for general adult medical examination without abnormal findings
CPT/HCPCS: 36415; 80053; 80061; 82043; 83036; 84153; 84439; 84443; 85025

== ENCOUNTER 2021-11-11 08:46 | Day surgery (SDC) | payer MEDICARE, OTHER ==
[2021-11-07 09:32] LABS: Urine Bacteria NONE SEEN /hpf (None Seen); Urine Blood Negative /uL (Negative); Urine Specific Gravity 1.025 (1.001-1.035); Urine WBC 6 /hpf (0 - 3)
[2021-11-07 09:41] LABS: INR 0.92 (0.9-1.15); Partial Thromboplastin Time 27.3 sec (24.6-33.4)
[2021-11-07 10:03] LABS: Basophils # (auto) 0 10 ^3/uL (0-0.2); Basophils % (auto) 0.7 % (0.0-2.0); Eosinophils # (auto) 0.1 10 ^3/uL (0-0.8); Eosinophils % (auto) 1.9 % (0.0-7.0); Hematocrit 43.9 % (41.0-53.0); Hemoglobin 14.2 g/dL (13.5-17.5); Lymphocytes # (auto) 0.9 10 ^3/uL (0.4-5.4); Lymphocytes % (auto) 16.3 % (10.0-50.0); Mean Corpuscular Hemoglobin 28.6 pg (28.0-32.0); Mean Corpuscular Hgb Conc. 32.3 g/dL (32.0-36.0); Mean Corpuscular Volume 88.4 fL (80.0-100.0); Monocytes # (auto) 0.4 10 ^3/uL (0-1.3); Monocytes % (auto) 7.8 % (0.0-12.0); Neutrophils # (auto) 4.1 10 ^3/uL (1.6-8.6); Neutrophils % (auto) 73.3 % (37.0-80.0); Red Blood Cells 4.97 10^6/uL (4.5-5.90); Red Cell Distribution Width 15.8 % (11.8-14.3); White Blood Cell 5.6 10^3/uL (4.4-10.8)
[2021-11-07 10:35] LABS: Albumin 3.6 g/dL (3.4-5.0); Calcium 9.1 mg/dL (8.5-10.1); Potassium 4.3 mmol/L (3.5-5.1)
[2021-11-07 10:38] LABS: BUN/Creatinine Ratio 20.5; Bilirubin, Total 0.7 mg/dL (0.2-1.0); Total Protein 7.2 g/dL (6.4-8.2)
[~2021-11-11] VITALS: Ht 180.3 cm; Wt 104.3 kg
[2021-11-11] MEDS ORDERED: fentaNYL CITRATE 100 MCG/2 ML VL ONE (10:10)
[2021-11-11] MEDS ORDERED: MEPERIDINE HCL (25 MG/ML) 1ML VIAL ONE (10:10)
[2021-11-11] MEDS ORDERED: MIDAZOLAM HCL 2MG/2ML 2ml VIAL (1mg/ml) ONE (10:11)
[2021-11-11] MEDS ORDERED: MIDAZOLAM HCL 2MG/2ML 2ml VIAL (1mg/ml) IV PRN (10:30)
[2021-11-11] MEDS ORDERED: ONDANSETRON HCL 4 MG/2 ML VIAL IV PRN (10:30)
[2021-11-11] MEDS ORDERED: MORPHINE SULFATE 4 MG/ML SYR/VIAL IV PRN (10:30)
[2021-11-11] MEDS ORDERED: LABETALOL HCL 5 MG/ML 4ML SYRINGE IV PRN (10:30)
[2021-11-11] MEDS ORDERED: ACCU-CHEK COMFORT CURVE STRIP VI ONE (10:30)
[2021-11-11] MEDS ORDERED: HYDROmorphone HCL 2 MG/ML VL/or syr IV PRN (10:30)
[2021-11-11] MEDS ORDERED: ePHEDrine SULFATE 50 MG/ML AMP IV PRN (10:30)
[2021-11-11] MEDS ORDERED: PROPOFOL 10 MG/ML 20 ML IV ONE (10:41)
[2021-11-11] MEDS ORDERED: DexAMETHasone SOD PHOS 10MG/1ML VIAL INJ ONE (10:41)
[2021-11-11 11:20] VITALS: BP 104/65
== END 2021-11-11 11:30 | disposition home or self-care (01) ==
LOC: GI 08:46
PROVIDERS: ATTEND Internal Medicine Gastroenterology
DX: R19.4 Change in bowel habit (principal); K63.5 Polyp of colon; K57.30 Diverticulosis of large intestine without perforation or abscess without bleeding; K64.8 Other hemorrhoids; K63.89 Other specified diseases of intestine; K62.89 Other specified diseases of anus and rectum; I48.91 Unspecified atrial fibrillation; I10 Essential (primary) hypertension; E11.9 Type 2 diabetes mellitus without complications; E03.9 Hypothyroidism, unspecified; I25.10 Atherosclerotic heart disease of native coronary artery without angina pectoris; Z80.8 Family history of malignant neoplasm of other organs or systems; Z90.89 Acquired absence of other organs; Z88.0 Allergy status to penicillin; Z20.822 Contact with and (suspected) exposure to COVID-19; Z95.0 Presence of cardiac pacemaker; Z87.891 Personal history of nicotine dependence; Z80.0 Family history of malignant neoplasm of digestive organs; Z82.49 Family history of ischemic heart disease and other diseases of the circulatory system; Z80.42 Family history of malignant neoplasm of prostate; Z82.5 Family history of asthma and other chronic lower respiratory diseases; Z81.8 Family history of other mental and behavioral disorders; Z83.49 Family history of other endocrine, nutritional and metabolic diseases
CPT/HCPCS: 36415; 45380; 80053; 81001; 82962; 85025; 85610; 85730; 88305; J1100; J2175; J2250; J2704; J3010; J7030; U0003; 99153; G0500

== ENCOUNTER → 2021-12-31 | Outpatient (CLI) | payer MEDICARE, OTHER ==
[~2021-12-31] MED LIST changes: +IOHEXOL 350 MG/ML 100ML IJ ONE
== END | disposition home or self-care (01) ==
LOC: Rad HDHVI 11:48
PROVIDERS: ATTEND Internal Medicine Cardiovascular Disease
DX: R94.4 Abnormal results of kidney function studies (principal)
CPT/HCPCS: 36415; 82565; 84520; Q9967

== ENCOUNTER → 2022-01-02 | Outpatient (CLI) | payer MEDICARE, OTHER ==
[~2022-01-02] MED LIST changes: -IOHEXOL 350 MG/ML 100ML IJ ONE
== END | disposition home or self-care (01) ==
LOC: Rad HDHVI 10:43
PROVIDERS: ATTEND Internal Medicine Cardiovascular Disease
DX: I05.8 Other rheumatic mitral valve diseases (principal); E78.5 Hyperlipidemia, unspecified; R00.2 Palpitations; I77.810 Thoracic aortic ectasia
CPT/HCPCS: 93306

== ENCOUNTER → 2022-01-08 | Outpatient (CLI) | payer MEDICARE, OTHER ==
[~2022-01-08] VITALS: Ht 180.3 cm; Wt 104.3 kg
[~2022-01-08] MED LIST changes: +ADENOSINE 88 MG in GIVE UN-DILUTED 0 ML IV ONE; +ADENOSINE 90 MG/30 ML INJ IV ONE
== END | disposition home or self-care (01) ==
LOC: Rad HDHVI 08:12
PROVIDERS: ATTEND Internal Medicine Cardiovascular Disease
DX: I25.10 Atherosclerotic heart disease of native coronary artery without angina pectoris (principal); I10 Essential (primary) hypertension; E11.9 Type 2 diabetes mellitus without complications; I48.91 Unspecified atrial fibrillation; Z95.0 Presence of cardiac pacemaker; Z82.49 Family history of ischemic heart disease and other diseases of the circulatory system
CPT/HCPCS: 78452; 93005; 96374; 96375; A9500; J0153

== ENCOUNTER → 2022-01-12 | Outpatient (CLI) | payer MEDICARE, OTHER ==
[~2022-01-12] MED LIST changes: -ADENOSINE 88 MG in GIVE UN-DILUTED 0 ML IV ONE; -ADENOSINE 90 MG/30 ML INJ IV ONE; +DILT120T3 PO; +LEVO25CA3 PO; +POTA-264 PO
== END | disposition home or self-care (01) ==
LOC: Rad HDHVI 15:47
PROVIDERS: ATTEND Internal Medicine Cardiovascular Disease
DX: I70.202 Unspecified atherosclerosis of native arteries of extremities, left leg (principal); I70.291 Other atherosclerosis of native arteries of extremities, right leg; R20.0 Anesthesia of skin; R60.9 Edema, unspecified
CPT/HCPCS: 93925

== ENCOUNTER → 2022-02-11 | Outpatient (CLI) | payer MEDICARE, OTHER ==
[2022-02-11 12:00] VITALS: BP 124/60
[2022-02-11 12:16] VITALS: BP 137/63
[2022-02-11 16:07] LABS: Basophils # (auto) 0 10 ^3/uL (0-0.2); Basophils % (auto) 0.4 % (0.0-2.0); Eosinophils # (auto) 0.1 10 ^3/uL (0-0.8); Eosinophils % (auto) 1.7 % (0.0-7.0); Hematocrit 43.4 % (41.0-53.0); Hemoglobin 14.1 g/dL (13.5-17.5); Lymphocytes % (auto) 18.1 % (10.0-50.0); Mean Corpuscular Hemoglobin 29.1 pg (28.0-32.0); Mean Corpuscular Hgb Conc. 32.6 g/dL (32.0-36.0); Mean Corpuscular Volume 89.4 fL (80.0-100.0); Monocytes # (auto) 0.4 10 ^3/uL (0-1.3); Monocytes % (auto) 7.7 % (0.0-12.0); Neutrophils # (auto) 4.2 10 ^3/uL (1.6-8.6); Neutrophils % (auto) 72.1 % (37.0-80.0); Nucleated Red Blood Cells % 0.2 %; Red Blood Cells 4.85 10^6/uL (4.5-5.90); Red Cell Distribution Width 16.3 % (11.8-14.3); White Blood Cell 5.8 10^3/uL (4.4-10.8)
[2022-02-11 16:22] LABS: INR 0.98 (0.9-1.15); Partial Thromboplastin Time 31.9 sec (24.6-33.4)
[2022-02-11 16:29] LABS: BUN/Creatinine Ratio 17.6; Calcium 9.3 mg/dL (8.5-10.1); Potassium 4.5 mmol/L (3.5-5.1)
== END | disposition home or self-care (01) ==
LOC: Rad HDHVI 11:51
PROVIDERS: ATTEND Internal Medicine Cardiovascular Disease
DX: I50.23 Acute on chronic systolic (congestive) heart failure (principal)
CPT/HCPCS: 36415; 71046; 80048; 85025; 85610; 85730; 93005; G0463

== ENCOUNTER 2022-02-13 11:47 | Day surgery (SDC) | payer MEDICARE, OTHER ==
[~2022-02-13] VITALS: Ht 180.3 cm; Wt 109.3 kg
[2022-02-13] VITALS (7 sets, daily range): BP systolic 141–166; BP diastolic 58–77
[~2022-02-13 11:47] MED LIST changes: -DILT120T8 PO; -LEVO200T PO; -SIMV10TA84 PO
[2022-02-13] MEDS ORDERED: ANGIOMAX 250 MG VIAL IV ONE (14:32)
[2022-02-13] MEDS ORDERED: fentaNYL CITRATE 100 MCG/2 ML VL ONE (14:32)
[2022-02-13] MEDS ORDERED: MIDAZOLAM HCL 2MG/2ML 2ml VIAL (1mg/ml) ONE (14:32)
[2022-02-13] MEDS ORDERED: IOHEXOL 350 MG/ML 100ML IJ ONE ×2 (14:33→14:45)
[2022-02-13] MEDS ORDERED: HEPARIN IN NS 1000Units/500mL 1,500 ML ONE (14:33)
[2022-02-13] MEDS ORDERED: LIDOCAINE 2%HCL (LOCAL ANESTH.) INJ 20ML MDV ONE (14:33)
[2022-02-13] MEDS ORDERED: SODIUM CHL 0.9% 0 ML ONE (14:33)
[2022-02-13] MEDS ORDERED: HYDROcodone-ACET 5/325MG TAB PO PRN (15:15)
== END 2022-02-13 17:12 | disposition home or self-care (01) ==
LOC: CATH 11:47
PROVIDERS: ATTEND Internal Medicine Cardiovascular Disease
DX: E11.51 Type 2 diabetes mellitus with diabetic peripheral angiopathy without gangrene (principal); I70.211 Atherosclerosis of native arteries of extremities with intermittent claudication, right leg; E11.40 Type 2 diabetes mellitus with diabetic neuropathy, unspecified; E11.21 Type 2 diabetes mellitus with diabetic nephropathy; E66.9 Obesity, unspecified; N13.2 Hydronephrosis with renal and ureteral calculous obstruction; I48.19 Other persistent atrial fibrillation; E89.0 Postprocedural hypothyroidism; Y83.8 Other surgical procedures as the cause of abnormal reaction of the patient, or of later complication, without mention of misadventure at the time of the procedure; Z88.0 Allergy status to penicillin; Z88.1 Allergy status to other antibiotic agents; Z88.8 Allergy status to other drugs, medicaments and biological substances; Z79.899 Other long term (current) drug therapy; Z79.84 Long term (current) use of oral hypoglycemic drugs; Z79.890 Hormone replacement therapy
CPT/HCPCS: 36247; C1760; C1769; C1887; C1894; J1644; J2250; J3010; J7030; Q9967; U0003; 99152

== ENCOUNTER → 2023-01-06 | Outpatient (CLI) | payer MEDICARE, OTHER ==
[2023-01-06 10:43] LABS: Basophils # (auto) 0 10 ^3/uL (0-0.2); Basophils % (auto) 0.6 % (0.0-2.0); Eosinophils # (auto) 0.1 10 ^3/uL (0-0.8); Eosinophils % (auto) 1.4 % (0.0-7.0); Hematocrit 44.5 % (41.0-53.0); Hemoglobin 14.7 g/dL (13.5-17.5); Lymphocytes # (auto) 1.2 10 ^3/uL (0.4-5.4); Lymphocytes % (auto) 15.4 % (10.0-50.0); Mean Corpuscular Volume 90.8 fL (80.0-100.0); Monocytes # (auto) 0.6 10 ^3/uL (0-1.3); Neutrophils % (auto) 74.6 % (37.0-80.0); Nucleated Red Blood Cells % 0.2 %; Red Cell Distribution Width 15.7 % (11.8-14.3); White Blood Cell 8.1 10^3/uL (4.4-10.8)
[2023-01-06 11:10] LABS: INR 0.99 (0.9-1.15); Partial Thromboplastin Time 32.2 SEC (24.5-34.5); Prothrombin Time 10.4 sec (9.3-11.8)
[2023-01-06 11:18] LABS: Alanine Aminotransferase 13 U/L (7-40); Albumin 4.5 g/dL (3.2-4.8); Alkaline Phosphatase 72 U/L (46-116); Anion Gap 10 (5-15); Aspartate Aminotransferase 11 U/L (13-40); BUN/Creatinine Ratio 13.3 (10.0-20.0); Bilirubin, Total 0.8 mg/dL (0.2-1.0); Blood Urea Nitrogen 16 mg/dL (9-23); Calcium 9.6 mg/dL (8.5-10.1); Carbon Dioxide 25 mmol/L (20-30); Chloride 102 mmol/L (98-107); Glucose 154 mg/dL (74-106); Potassium 4.8 mmol/L (3.5-5.1); Sodium 137 mmol/L (136-145); Total Protein 7.3 g/dL (5.7-8.2)
[2023-01-06 11:23] LABS: Urine Bacteria NONE SEEN /hpf (None Seen); Urine Blood Negative /uL (Negative); Urine Clarity Clear (Clear); Urine Color Yellow (Yellow); Urine Protein, UAD Negative (Negative); Urine Urobilinogen Normal (Negative); Urine WBC 11 /hpf (0 - 3); Urine pH 5.5 (5.0-8.0)
== END | disposition home or self-care (01) ==
LOC: LAB 10:16
DX: Z01.812 Encounter for preprocedural laboratory examination (principal); E11.621 Type 2 diabetes mellitus with foot ulcer; S91.302A Unspecified open wound, left foot, initial encounter; X58.XXXA Exposure to other specified factors, initial encounter; Y93.89 Activity, other specified; Y92.89 Other specified places as the place of occurrence of the external cause; Y99.8 Other external cause status; Z79.01 Long term (current) use of anticoagulants
CPT/HCPCS: 36415; 80053; 81001; 85025; 85610; 85730

== ENCOUNTER → 2023-01-06 | Outpatient (CLI) | payer MEDICARE, OTHER ==
[2023-01-06 10:07] LABS: Base Excess -5.7 mmol/L (-2.0-2.0)
== END | disposition home or self-care (01) ==
LOC: RT 09:36
PROVIDERS: ATTEND Nurse Practitioner Family
DX: Z01.818 Encounter for other preprocedural examination (principal); S91.302A Unspecified open wound, left foot, initial encounter; X58.XXXA Exposure to other specified factors, initial encounter; Y93.89 Activity, other specified; Y92.89 Other specified places as the place of occurrence of the external cause; Y99.8 Other external cause status
CPT/HCPCS: 36600; 82805

== ENCOUNTER → 2023-01-08 | Outpatient (CLI) | payer MEDICARE, OTHER | END | disposition home or self-care (01) | LOC: Rad HDHVI 14:56 | PROVIDERS: ATTEND Internal Medicine Cardiovascular Disease | DX: R06.02 Shortness of breath (principal); Z95.0 Presence of cardiac pacemaker | CPT/HCPCS: 71046 ==

== ENCOUNTER → 2023-10-07 | Outpatient (CLI) | payer MEDICARE, OTHER ==
[~2023-10-07] MED LIST changes: +POTA-36 PO; -POTA10TA51 PO
== END | disposition home or self-care (01) ==
LOC: LAB 08:51
PROVIDERS: ATTEND Internal Medicine Gastroenterology
DX: R19.7 Diarrhea, unspecified (principal)
CPT/HCPCS: 85048; 87045; 87177; 87427; 87493

== ENCOUNTER 2024-03-17 09:48 | Day surgery (SDC) | payer MEDICARE, OTHER ==
[2024-03-10 11:33] LABS: Urine Bacteria None Seen /hpf (None Seen)
[2024-03-10 12:02] LABS: Urine Blood Negative /uL (Negative); Urine Clarity Clear (Clear); Urine Color Light-Yellow (Yellow); Urine Protein, UAD Negative (Negative); Urine Specific Gravity 1.027 (1.001-1.035); Urine Squamous Epithelial Cell FEW /hpf (<5); Urine Urobilinogen Normal (Negative); Urine WBC 29 /hpf (0 - 3); Urine pH 5.5 (5.0-9.0)
[2024-03-10 12:06] LABS: Alanine Aminotransferase 10 U/L (7-40); Albumin 4.6 g/dL (3.2-4.8); Alkaline Phosphatase 72 U/L (46-116); Anion Gap 9 (5-15); Aspartate Aminotransferase 14 U/L (13-40); BUN/Creatinine Ratio 18.1 (10.0-20.0); Blood Urea Nitrogen 21 mg/dL (9-23); Calcium 10.2 mg/dL (8.7-10.4); Carbon Dioxide 27 mmol/L (20-31); Chloride 101 mmol/L (98-107); Potassium 4.5 mmol/L (3.5-5.1); Sodium 137 mmol/L (136-145); Total Protein 7.3 g/dL (5.7-8.2)
[2024-03-10 12:08] LABS: Glucose 148 mg/dL (74-106)
[2024-03-10 12:10] LABS: Partial Thromboplastin Time 29.8 SEC (24.5-34.5); Prothrombin Time 10.6 sec (9.3-11.8)
[2024-03-10 12:13] LABS: Basophils # (auto) 0 10 ^3/uL (0-0.2); Basophils % (auto) 0.4 % (0.0-2.0); Eosinophils # (auto) 0.1 10 ^3/uL (0-0.8); Eosinophils % (auto) 1.7 % (0.0-7.0); Hematocrit 45.1 % (41.0-53.0); Hemoglobin 15.5 g/dL (13.5-17.5); Lymphocytes # (auto) 1.2 10 ^3/uL (0.4-5.4); Lymphocytes % (auto) 16.6 % (10.0-50.0); Mean Corpuscular Hemoglobin 31.9 pg (28.0-32.0); Mean Corpuscular Hgb Conc. 34.4 g/dL (32.0-36.0); Mean Corpuscular Volume 92.5 fL (80.0-100.0); Monocytes # (auto) 0.6 10 ^3/uL (0-1.3); Monocytes % (auto) 8.4 % (0.0-12.0); Neutrophils # (auto) 5.3 10 ^3/uL (1.6-8.6); Neutrophils % (auto) 72.9 % (37.0-80.0); Nucleated Red Blood Cells % 0.3 %; Platelet Count (auto) 212 10^3/uL (140-450); Red Blood Cells 4.87 10^6/uL (4.5-5.90); Red Cell Distribution Width 14.9 % (11.8-14.3); White Blood Cell 7.3 10^3/uL (4.4-10.8)
[2024-03-10 12:24] LABS: Bilirubin, Total 0.8 mg/dL (0.2-1.0)
[~2024-03-17] VITALS: Ht 180.3 cm; Wt 108.9 kg
[~2024-03-17 09:48] MED LIST changes: +CILO100T3 PO; +DICY20TA PO; -DULA0.5I SC; +GABA300T4 PO; +LEVO150C3 PO; -LEVO25CA3 PO; -POTA-264 PO; -POTA-36 PO; +SEMA2INJ3 SC; +SIMV5TAB14 PO
[2024-03-17] MEDS ORDERED: LIDOCAINE VISCOUS 2% 15ML UD ONE (11:29)
[2024-03-17] MEDS ORDERED: fentaNYL CITRATE 100 MCG/2 ML VL ONE (11:57)
[2024-03-17] MEDS ORDERED: MIDAZOLAM HCL 2MG/2ML 2ml VIAL (1mg/ml) ONE (11:57)
[2024-03-17] MEDS ORDERED: PROPOFOL 10 MG/ML 20 ML IV ONE (12:09)
[2024-03-17] MEDS ORDERED: DexAMETHasone SOD PHOS 10MG/1ML VIAL INJ ONE (12:09)
[2024-03-17 12:15] VITALS: PULSE 81; RESP 21; TEMP 97; O2SAT 96
--- NOTE | 2024-03-17 12:17 | DVHOP2 ---
Operative Report DATE OF OPERATION: 03/17/24 PROCEDURE: Upper Endoscopy with biopsy. PREOPERATIVE INDICATION: The patient is a 78 -year-old male undergoing endoscopy for chronic GERD and epigastric pain POSTOPERATIVE DIAGNOSES: 1. 2 cm sliding-type hiatal hernia with the acute grade a to B linear erosive esophagitis with some superficial ulceration of the GE junction from which biopsies were obtained 2. Moderate gastroduodenitis with superficial pre-pyloric antral gastric erosions and superficial duodenal ulcers PROCEDURE PERFORMED BY: Danielle Holder GI NURSE: Deb SCOPE: Olympus videoendoscope. ASA CLASS: 3. PREOPERATIVE MEDICATIONS: Mac sedation Dr. Zhong PROCEDURE IN DETAIL: After obtaining an informed consent, the patient was placed on left lateral decubitus position. The patient was then sedated with the above medications. A bite block was placed between his teeth. The endoscope was then passed through the oropharynx, into the esophagus, and through the stomach and pylorus up to the second and third part of the duodenum. The endoscope was then withdrawn. The 2nd and 3rd part of the duodenum was normal. The duodenal bulb and postbulbar area showed duodenitis with some postbulbar superficial ulcers The pre-pyloric area and antrum showed mild gastritis with some superficial erosions. On retroflexion the fundus and cardia were normal. Duodenal and gastric biopsies were obtained. The endoscope was then withdrawn into the distal esophagus. Patient had a 2 cm sliding-type hiatal hernia with the acute grade a to B linear erosive esophagitis with GE junction ulceration GE junction biopsies were obtained. The remaining distal and proximal esophagus and oropharynx were unremarkable The patient tolerated the procedure well without difficulty. COMPLICATIONS : None SPECIMENS: Duodenal biopsies Gastric biopsies GE junction biopsies DISPOSITION: Stable D/C to home PLAN: 1. Await for biopsy result 2. Will place pt on Protonix 40 mg p.o. twice a day 3. Carafate 1 g p.o. twice a day 4. DC aspirin NSAIDs smoking alcohol 5. Resume GI soft diet advance as tolerated 6. Outpatient follow up with me in 4-6 weeks to review results and discuss further management DANIELLE HOLDER MD Mar 17, 2024 12:17
[2024-03-17 12:30] VITALS: PULSE 74; RESP 13; O2SAT 97
[2024-03-17 13:15] VITALS: BP 127/67; PULSE 55; RESP 14; O2SAT 95
== END 2024-03-17 13:20 | disposition home or self-care (01) ==
LOC: GI 09:48
PROVIDERS: ATTEND Internal Medicine Gastroenterology
DX: K21.00 Gastro-esophageal reflux disease with esophagitis, without bleeding (principal); K29.50 Unspecified chronic gastritis without bleeding; K22.10 Ulcer of esophagus without bleeding; K25.9 Gastric ulcer, unspecified as acute or chronic, without hemorrhage or perforation; K26.9 Duodenal ulcer, unspecified as acute or chronic, without hemorrhage or perforation; K29.80 Duodenitis without bleeding; K44.9 Diaphragmatic hernia without obstruction or gangrene; E11.51 Type 2 diabetes mellitus with diabetic peripheral angiopathy without gangrene; I10 Essential (primary) hypertension; Z88.1 Allergy status to other antibiotic agents; Z88.8 Allergy status to other drugs, medicaments and biological substances; Z87.891 Personal history of nicotine dependence; Z79.01 Long term (current) use of anticoagulants; Z79.899 Other long term (current) drug therapy
CPT/HCPCS: 36415; 43239; 80053; 81001; 85025; 85610; 85730; 88305; 88312; 88342; J1100; J2250; J2704; J3010; J7030

== ENCOUNTER → 2024-05-05 | Outpatient (CLI) | payer MEDICARE, OTHER | END | disposition home or self-care (01) | LOC: Rad HDHVI 13:40 | PROVIDERS: ATTEND Internal Medicine Cardiovascular Disease | DX: I48.91 Unspecified atrial fibrillation (principal); I10 Essential (primary) hypertension | CPT/HCPCS: 93306 ==

== ENCOUNTER → 2024-05-10 | Outpatient (CLI) | payer MEDICARE, OTHER | END | disposition home or self-care (01) | LOC: Rad HDHVI 10:44 | PROVIDERS: ATTEND Internal Medicine Cardiovascular Disease | DX: I48.91 Unspecified atrial fibrillation (principal) | CPT/HCPCS: 93880 ==

== ENCOUNTER → 2024-06-27 | Outpatient (CLI) | payer MEDICARE, OTHER ==
[~2024-06-27] MED LIST changes: +APIX2.5T PO; +CLOP75TA28 PO; +LEVO25TA2 PO; +POM
[2024-06-27 09:10] VITALS: BP 114/79; PULSE 71; RESP 16; O2SAT 94
[2024-06-27 09:26] VITALS: BP 114/71; PULSE 73; RESP 16; O2SAT 94
--- NOTE | 2024-06-27 13:06 | DVH ---
EXAM: XY CHEST TWO VIEWS ROUTINE HISTORY: PRE OP COMPARISON: XY CHEST TWO VIEWS ROUTINE on DOS: 01/08/23, CHEST TWO VIEWS ROUTINE on DOS: 02/11/22, CX R2 on DOS: 02/11/22 TECHNIQUE: Frontal and lateral views of the chest were performed. FINDINGS: There is a left chest pacemaker. No pneumothorax, pulmonary edema, pleural effusions, or consolidativ e infiltrates. The lungs are hyperexpanded with flattening of the diaphragm and increased retrosterna l airspace on the lateral view. The heart is borderline enlarged. The aortic arch is calcific. There may be an old right distal clavicle fracture. IMPRESSION: Pulmonary hyperexpansion without evidence of acute intrathoracic process.
== END | disposition home or self-care (01) ==
LOC: Rad HDHVI 08:45
PROVIDERS: ATTEND Internal Medicine Cardiovascular Disease
DX: Z01.818 Encounter for other preprocedural examination (principal); I70.0 Atherosclerosis of aorta; R94.31 Abnormal electrocardiogram [ECG] [EKG]; I48.0 Paroxysmal atrial fibrillation; R06.02 Shortness of breath; I50.1 Left ventricular failure, unspecified
CPT/HCPCS: 71046; 93005; G0463

== ENCOUNTER 2024-06-29 07:40 | Day surgery (SDC) | payer MEDICARE, OTHER ==
[2024-06-27 12:12] LABS: Basophils # (auto) 0 10 ^3/uL (0-0.2); Basophils % (auto) 0.5 % (0.0-2.0); Eosinophils # (auto) 0.2 10 ^3/uL (0-0.8); Eosinophils % (auto) 2.1 % (0.0-7.0); Hematocrit 45.6 % (41.0-53.0); Hemoglobin 15.1 g/dL (13.5-17.5); Lymphocytes # (auto) 1.3 10 ^3/uL (0.4-5.4); Lymphocytes % (auto) 17.9 % (10.0-50.0); Mean Corpuscular Hemoglobin 30.1 pg (28.0-32.0); Mean Corpuscular Hgb Conc. 33.1 g/dL (32.0-36.0); Mean Corpuscular Volume 90.7 fL (80.0-100.0); Monocytes # (auto) 0.6 10 ^3/uL (0-1.3); Monocytes % (auto) 8.9 % (0.0-12.0); Neutrophils # (auto) 5.1 10 ^3/uL (1.6-8.6); Neutrophils % (auto) 70.6 % (37.0-80.0); Nucleated Red Blood Cells % 0.2 %; Platelet Count (auto) 210 10^3/uL (140-450); Red Blood Cells 5.03 10^6/uL (4.5-5.90); Red Cell Distribution Width 15.5 % (11.8-14.3); White Blood Cell 7.2 10^3/uL (4.4-10.8)
[2024-06-27 12:30] LABS: Chloride 101 mmol/L (98-107); INR 0.97 (0.9-1.15); Partial Thromboplastin Time 28.7 SEC (24.5-34.5); Potassium 4.8 mmol/L (3.5-5.1); Prothrombin Time 10.3 sec (9.3-11.8); Sodium 138 mmol/L (136-145)
[2024-06-27 12:31] LABS: Anion Gap 10 (5-15); Carbon Dioxide 27 mmol/L (20-31)
[2024-06-27 12:32] LABS: Calcium 10.3 mg/dL (8.7-10.4)
[2024-06-27 12:37] LABS: BUN/Creatinine Ratio 14.7 (10.0-20.0); Blood Urea Nitrogen 16 mg/dL (9-23)
[2024-06-27 12:47] LABS: Glucose 109 mg/dL (74-106)
[~2024-06-29] VITALS: Ht 180.3 cm; Wt 107.5 kg
[2024-06-29] VITALS (10 sets, daily range): BP systolic 90–116; BP diastolic 47–66; PULSE 73–86; RESP 12–18; TEMP 97.7; O2SAT 94–97
[~2024-06-29 07:40] MED LIST changes: -APIX2.5T PO; -CLOP75TA28 PO
[2024-06-29] MEDS ORDERED: ANGIOMAX 250 MG VIAL IV ONE ×2 (08:40→09:51)
[2024-06-29] MEDS ORDERED: fentaNYL CITRATE 100 MCG/2 ML VL ONE (08:40)
[2024-06-29] MEDS ORDERED: MIDAZOLAM HCL 2MG/2ML 2ml VIAL (1mg/ml) ONE (08:40)
[2024-06-29] MEDS ORDERED: HEPARIN IN NS 1000Units/500mL 1,500 ML ONE (08:41)
[2024-06-29] MEDS ORDERED: LIDOCAINE 2%HCL (LOCAL ANESTH.) INJ 20ML MDV ONE (08:41)
[2024-06-29] MEDS ORDERED: IOHEXOL 350 MG/ML 100ML IJ ONE (08:41)
[2024-06-29] MEDS ORDERED: SODIUM CHL 0.9% 50 ML ONE ×2 (08:41→09:51)
[2024-06-29] MEDS ORDERED: CLOPIDOGREL BISULFATE 75 MG TAB ONE ×2 (10:02→10:03)
--- NOTE | 2024-06-29 11:09 | DVHDS ---
DATE OF DISCHARGE: 06/29/2024 DISCHARGE DIAGNOSIS: The patient underwent successful angioplasty with stent placement left anterior descending artery. HOSPITAL COURSE: Clinically, the patient is stable. His ejection fraction is only 30%. The patient will be maintained on Eliquis and Plavix in combination because of the patient's underlying atrial fibrillation. The patient with ischemic cardiomyopathy, heart failure with reduced ejection fraction. Stable at the time of discharge. DISPOSITION: Home. ACTIVITY: As instructed. DIET: 2 gram sodium diet. If the patient develops any chest pain, shortness of breath, he is to come to me or come to the Emergency Room. Aung Cavazos MD SA/KASSIDY TID: [id number] RECEIPT: [id number]
--- NOTE | 2024-06-29 11:20 | DVHOP ---
DATE OF SURGERY: 06/29/2024 PROCEDURES PERFORMED: * Selective left and right coronary angiography. * Right heart catheterization. * [place]-Kathy reading. * Conscious sedation. * Angioplasty with stent placement x3 of the left anterior descending artery mid to proximal segment with a 3.0 x 12, followed by 3.0 x 22, followed by 3.0 x 15 mm Kiran stent from proximal to mid. * Thrombectomy with shockwave of the left anterior descending artery. DESCRIPTION OF PROCEDURE: The patient was prepped and draped in a sterile condition. 1% Xylocaine used to anesthetize the right groin. Using a Cook needle, the right femoral artery was engaged with Seldinger technique, a 6-Tajik sheath in the right femoral artery. Similarly, a 6-Tajik sheath was introduced in the right femoral vein. Using a 6-Tajik balloon-tipped thermodilutional catheter, sided pressure tracings were obtained. Then, using 6-Tajik JL4 catheter and 6-Tajik JR4 catheter, selective left and right coronary angiographies were performed. Using 6-Tajik pigtail catheter, ventriculogram was done. Total contrast used was 180 mL Optiray. Total fluoro time was 10 minutes. Following the diagnostic angiography, the 6-Tajik system was exchanged for a 6-Tajik interventional system. Using 6-Tajik XB 3.5 guide catheter, left main was cannulated. Using a ChoICE PT extra support wire, the LAD lesion was then crossed. Then, a second wire, a Runthrough wire was also used to cross the additional support. There was extreme tortuosity and calcification in left anterior descending artery. From the mid LAD to the proximal LAD, LAD lesion was then thrombectomized and shockwaved because of the calcification. Following that, three sequential stents were placed from the mid LAD to the proximal LAD. A 3.0 x 15 followed by 3.0 x 22 followed by 3.0 x 12 mm Kiran stent. Prior to the deployment of the stent, the lesion was FFR to make sure it is appropriate stenosis. FFR was 0.72. There were no complications. The patient tolerated the procedure well. RESULTS: * Right heart catheterization showed an RA pressure of 6, RV pressure of 42/6, PA pressure of 45/15 and left ventricular end diastolic pressure of 16 with no gradient across the aortic valve. Left ventricular end diastolic pressure was 16. Capillary wedge pressure of 16 as well, ejection fraction of 30%. * Left heart catheterization showed a heavily calcified left anterior descending artery including the left main with significant atheromatous plaquing noted. Left , ; however, did not have significant flow restrictive lesion. * Left anterior descending artery had a long segmental narrowing of about 80% with an FFR of 7.2 from the proximal LAD to the mid LAD, status post three sequential stents placement with less than 10% residual stenosis. * Circumflex artery, mild diffuse disease without any flow restrictive lesion. 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 Thus, the patient had significant narrowing of the left anterior descending artery from the mid position to the proximal, FFR of 0.72, status post three sequential stents placement, a 3.0 x 12 followed by 3.0 x 22 followed by 3.0 x 15 mm stents from the proximal to the mid with less than 10% residual stenosis. Pre and post intervention, the patient had shockwave treatment and thrombectomy of the left anterior descending artery for debulking the heavily calcified lesions. Right coronary artery was chronically occluded. Circumflex has mild diffuse disease with AV calcification and tortuosity. Left ventricular ejection fraction of 30%, LVEDP of 16 mmHg, RA pressure of 6, RV pressure of 42/6, PA pressure of 45/15, LVEDP of 16. At this time, the patient has underlying atrial fibrillation, has sick sinus syndrome, status post permanent pacemaker implantation. He may need upgrade to a Bi-V if the patient's EF does not improve following angioplasty. Aung Cavazos MD SA/MIYA TID: [id number] RECEIPT: [id number]
--- NOTE | 2024-06-29 11:20 | DVHHP ---
ADMIT DATE: 06/29/2024 HISTORY OF PRESENT ILLNESS: The patient who is 79 years old with history of wheelchair bound, now with signs and symptom complex of chest pain. He has ischemic cardiomyopathy, sick sinus syndrome, atrial fibrillation, hypercoagulable state, status post dual chamber permanent pacemaker implantation, but now having progressive symptoms of shortness of breath, progression of left ventricular dysfunction. He had an EF of 45%. Now, he has an EF around 30% and because of those changes and the patient with increasing shortness of breath, it is felt that the patient should undergo coronary angiography to define coronary anatomy. He has a chronically occluded RCA when he suffered a myocardial infarction that caused his ejection fraction to diminish. At this time, there may be new lesions that may require intervention. He has heavy calcification of the coronary anatomy and the aorta documented both by CT as well as by chest x-ray as well. PERTINENT MEDICAL HISTORY: Significant for diabetes, hypertension, hyperlipidemia, atrial fibrillation as stated above. FAMILY HISTORY: Negative. SOCIAL HISTORY: Negative. PHYSICAL EXAMINATION: VITAL SIGNS: Blood pressure is 100/60, pulse of 70 and irregular, O2 saturation 94%. HEENT: Pupils are reactive. Funduscopic exam shows some AV nicking and exudates, no papilledema. Sclerae anicteric. Oral mucosa moist. Posterior pharynx without any exudate. NECK: No JVD appreciated. Carotid pulses are 2+, symmetrical. PULMONARY: Clear to auscultation. No rhonchi, no wheezes, no egophony. CARDIOVASCULAR: Irregularly irregular. PMI is not displaced. There is systolic murmur along the left sternal border. ABDOMEN: Obese. Unable to appreciate organomegaly. NEUROLOGIC: The patient has significant loss of muscle strength, proximal muscle weakness of the lower extremity. ASSESSMENT AND PLAN: Thus, the patient with ischemic cardiomyopathy, now with progression of left ventricular dysfunction, systolic. Therefore, the patient is to undergo coronary angiography, right heart catheterization to rule out pulmonary hypertension. We will make further recommendations after. Aung Cavazos MD SA/FIORDALIZA/LON TID: [id number] RECEIPT: [id number]
[2024-06-29] MEDS ORDERED: APIX2.5T PO (12:56)
[2024-06-29] MEDS ORDERED: CLOP75TA28 PO (12:56)
== END 2024-06-29 13:31 | disposition home or self-care (01) ==
LOC: CATH 07:40
PROVIDERS: ATTEND Internal Medicine Cardiovascular Disease
DX: R94.39 Abnormal result of other cardiovascular function study (principal); I25.10 Atherosclerotic heart disease of native coronary artery without angina pectoris; I25.84 Coronary atherosclerosis due to calcified coronary lesion; I25.5 Ischemic cardiomyopathy; I49.5 Sick sinus syndrome; I48.91 Unspecified atrial fibrillation; I11.0 Hypertensive heart disease with heart failure; I50.1 Left ventricular failure, unspecified; E11.9 Type 2 diabetes mellitus without complications; E78.5 Hyperlipidemia, unspecified; Z79.01 Long term (current) use of anticoagulants; Z99.3 Dependence on wheelchair; Z95.0 Presence of cardiac pacemaker
CPT/HCPCS: 0523T; 36415; 80048; 85025; 85610; 85730; 92972; 92973; 93460; C1725; C1760; C1761; C1769; C1874; C1887; C1894; C9600; J0583; J1644; J2250; J3010; J7030; Q9967; 99152; 99153

== ENCOUNTER 2024-11-15 10:15 | Outpatient (CLI) | payer MEDICARE, OTHER ==
[~2024-11-15 10:15] MED LIST changes: +APIX2.5T PO; -APIX5TAB PO; +CLOP75TA28 PO
--- NOTE | 2024-11-15 12:38 | DVHSR ---
APPROVED REPORT EXAM: Two-dimensional and M-mode echocardiogram with Doppler and color Doppler. Surgery/Intervention Pacemaker: RISK FACTORS Obesity: DIMENSIONS LVDd5.8 (3.8-5.7cm)LA (2D)4.5 (1.9-4.0cm)Aortic Root4.2 (2.0-3.7cm) LVDs4.7 (2.5-4.0cm)LA (MM) (1.9-4.0cm)Aortic Cusp Exc1.6 (1.5-2.0cm) EF (%) 35.0 (55-70%)Rt. Atrium4.1 (1.9-4.0cm)Asc. Aorta cm IVSd1.0 (0.7-1.1cm)RV (D) (1.8-2.4cm) PWd1.2 (0.7-1.1cm) Mitral Valve MitralMitral Stenosis E wave1.05m/sMV Mean GR.mmHg A wave0.31m/sMV Peak GR.mmHg E/A ratio3.42D MVAcm2 DECEL [id number] 1/2 [place] Aortic Valve Aortic ValveAortic Stenosis V10.58m/[place] Mean GR.3mmHg V21.07m/[place] Peak GR.5mmHg LVOT Diameter2.2 (1.8-2.4cm)Doppler AVA2.06cm2 Pulmonic Valve V20.86m/s LEFT VENTRICLE The left ventricle is enlarged. The Ejection Fraction is below normal limits. The Ejection Fraction is 30-40%. RIGHT VENTRICLE The right ventricle is normal size. There is a pacemaker lead in the right ventricle. ATRIA The left atrium is enlarged. The right atrium is enlarged. The interatrial septum is intact with no evidence for an atrial septal defect. MITRAL VALVE The mitral valve is normal in structure. Mitral annular calcification is mild. Mitral regurgitation is trace to mild. PULMONIC VALVE The pulmonic valve is not well visualized. TRICUSPID VALVE The tricuspid valve is grossly normal. There is trace tricuspid regurgitation. AORTIC VALVE The aortic valve opens well. The aortic valve is mildly sclerotic. No aortic regurgitation is present. GREAT VESSELS The aortic root is enlarged. PERICARDIAL EFFUSION There is no pericardial effusion. Other Information Technically limited study due to body habitus and rhythm. Conclusion SEGMENTAL WALL MOTION ABNL EF 35% MILD MAC LAE JESSIE AORTIC ROOT DILATATION
== END 2024-11-15 17:00 | disposition home or self-care (01) ==
LOC: Rad HDHVI 10:15
PROVIDERS: ATTEND Internal Medicine Cardiovascular Disease
DX: I08.0 Rheumatic disorders of both mitral and aortic valves (principal); I25.2 Old myocardial infarction; E66.9 Obesity, unspecified
CPT/HCPCS: 93306